=== PATIENT | male | born 1950 | race Caucasian/White ===

== ENCOUNTER 2020-02-14 08:04 | Outpatient (CLI) | payer MEDICARE, OTHER, SELFPAY ==
--- NOTE | 2020-02-14 08:10 | MR_ITS ---
WS: [id number] MRI LUMBAR SPINE NONCONTRAST HISTORY: LOW BACK PAIN COMPARISON: None available. TECHNIQUE: Sagittal and axial multisequence imaging is submitted. Thoracolumbar scoliosis. Lumbar curvature is to the LEFT. Mild straightening of the normal lumbar lordosis. 3 mm retrolisthesis of L2. No vertebral body edema or fracture. Mild disc desiccation throughout the lumbar spine. Most significant narrowing is at L2-3 and L3-4. Conus terminates normally at L1-2 disc level. L1-L2: Mild diffuse disc bulging with facet arthropathy. Very mild narrowing of the subarticular rece sses and foramen. L2-L3: Moderate annular disc bulging with facet and ligamentum flavum arthropathy. Diffuse osteophyti c ridging is also present. There is mild subarticular recess and bilateral foraminal stenosis. L3-L4: Annular disc bulging and osteophytic ridging with facet and ligamentum flavum hypertrophy. Sma ll amount of fluid in the RIGHT facet joint. Severe LEFT foraminal stenosis. Effacement of fat in the LEFT foramen. There is moderate RIGHT foraminal stenosis. Mild central and bilateral subarticular re cess stenosis. L4-L5: Annular disc bulging and osteophytic ridging with facet and ligamentum flavum arthropathy. Mod erate central and bilateral subarticular recess and RIGHT foraminal narrowing. Severe LEFT foraminal stenosis with complete effacement of fat. L5-S1: Annular disc bulging with a RIGHT paracentral focal protrusion and osteophytic ridging. Comple te effacement of fat in the foramen resulting in severe foraminal stenosis. No central stenosis. Retroperitoneum is negative. MR/MR lumbar spine wo con* [id number] IMPRESSION: 1. Multilevel advanced spondylitic changes throughout the lumbar spine. 2. Severe LEFT foraminal stenosis at L3-4 and L4-5. 3. Severe bilateral foraminal stenosis at L5-S1. 4. Mild central and bilateral subarticular recess stenosis at L3-4 with modera te central, RIGHT foraminal and bilateral subarticular recess stenosis at L4-5.
--- NOTE | 2020-02-14 08:10 | XR_ITS ---
WS: [id number] LATERAL LUMBAR SPINE: 3 view. Lateral radiographs are performed in upright neutral, flexion and extension to the patient's toleranc e. HISTORY: LOW BACK PAIN COMPARISON: None available. Minimal retrolisthesis of L2 and L3. With flexion and extension there is no significant change in ret rolisthesis. Mild degenerative disc disease and endplate osteophytes of the lumbar spine. Advanced fa cet joint arthritis is noted L4-5 and L5-S1. Scattered calcification in aorta. XR/XR lumbar spine f/e only [id number] IMPRESSION: 1. Multilevel degenerative changes throughout the lumbar spine with no instabi lity. 2. Advanced facet joint arthritis at L4-5 and L5-S1.
== END 2020-02-14 08:05 | disposition home or self-care (01) ==
PROVIDERS: PCP Family Medicine; Visit Provider Nurse Practitioner
DX: M47.896 Other spondylosis, lumbar region (principal); M48.061 Spinal stenosis, lumbar region without neurogenic claudication; M54.5 Low back pain
CPT/HCPCS: 72120; 72148

== ENCOUNTER 2021-12-22 13:16 | Emergency (ER) | payer MEDICARE, OTHER, SELFPAY ==
[2021-12-22 13:39] VITALS: BP 181/110; PULSE 68; RESP 25; TEMP 36.9; O2SAT 97; BMI 23.5
[2021-12-22 13:46] VITALS: BP 157/95; PULSE 62; RESP 18; TEMP 36.9; O2SAT 97
--- NOTE | 2021-12-22 13:46 | ECG_ITS ---
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: : 1950 Requested By: Sanford Jones Order Number: [id number] Reading MD: SHRUTHI STUBBS Measurements Intervals [place] Rate: 57 P: 78 IL: 183 QRS: 48 QRSD: 93 T: 38 QT: 414 QTc: 405 Interpretive Statements SINUS BRADYCARDIA LOW QRS VOLTAGE IN PRECORDIAL LEADS [QRS DEFLECTION < 1.0 mV IN CHEST LEADS] No previous ECG available for comparison Electronically Signed On 12-22-2021 19:50:14 DIRECTOR OF CHANNEL MARKETING by SHRUTHI STUBBS [id number]
--- NOTE | 2021-12-22 13:46 | ED_ITS ---
HPI - Neuro Symptoms/Deficit General: Chief Complaint: Altered Mental Status Stated Complaint: STROKE LIKE SYMPTOMS Time Seen by Provider: 12/22/21 13:36 Source: patient Mode of arrival: ambulatory Limitations: altered mental status History of Present Illness: 71-year-old male presents emergency room with a friend. Report of altered mental status that is persistent. Does not recall any events of the day. That is his only real altered status. He is 89 difficulty with speech swallowing vision or gait. He has been very confused at times. No difficulty with vision. No headache no shortness of breath no chest pain Onset (ago): hour(s) Time: 08:30 Location: other History of same: No Severity: mild Relieving factors: none Context: sudden onset Associated symptoms: Deny chest pain, cough, diaphoresis, fevers/chills, headache(s), anorexia, malaise, nausea, seizures, short of breath, syncope, tingling, vertigo, vomiting or weakness Treatments Prior to Arrival: none Review of Systems Const: Denies: malaise or diaphoresis ENMT: Denies: throat pain, ear or mastoid pain, nasal discharge or nasal congestion Card: Denies: chest pain or syncope Resp: Denies: dyspnea, productive cough or non-productive cough GI: Denies: nausea or vomiting : Denies: flank pain, dysuria, urinary frequency or urinary urgency Skin/Breast: Denies: rash or pruritus Neuro: Denies: headache(s) or vertigo [facility] ED PFSH: Medical History No significant past medical history Surgical History No significant past surgical history Social History Smoking and tobacco status: never smoked Alcohol intake: unknown NIH stroke score NIHSS: Level Of Consciousness - 1a: 0 Level Of Consciousness Questions - 1b: Both Correct Level Of Consciousness Commands - 1c: Both Correct Best Gaze - 2: Normal Visual Reyes - 3: No Visual Loss Facial Palsy - 4: Normal Motor Arm Right - 5: No Drift Motor Arm Left - 5: No Drift Motor Leg Right - 6: No Drift Motor Leg Left - 6: No Drift Limb Ataxia - 7: Absent Sensory - 8: Normal Best Language - 9: No Aphasia Dysarthia - 10: Normal Extinction And Inattention - 11: 0 Score: Total Score: 0 Physical Exam Const: COMMON NORMALS: no acute distress GENERAL APPEARANCE: cooperative and comfortable ORIENTATION/CONSCIOUSNESS: Yes awake, Yes oriented to person, Yes oriented to place and Yes oriented to time HENMT: COMMON NORMALS: normocephalic, atraumatic and hearing grossly normal bilaterally HEAD & SCALP: normocephalic and atraumatic Neck/C-Spine: COMMON NORMALS: no JVD Resp: COMMON NORMALS: normal respiratory effort, No retractions, No use of accessory muscles and clear to auscultation bilaterally AUSCULTATION: clear to auscultation bilaterally Cardio: COMMON NORMALS: no JVD, regular rate, regular rhythm and No murmurs present (Cardio) RATE: regular rate RHYTHM: regular rhythm GI: COMMON NORMALS: Soft to palpation and No hepatosplenomegaly present AUSCULTATION: Yes normoactive bowel sounds PALPATION: Yes Soft to palpation, No Tenderness to palpation present (GI), No Guarding due to palpation present (GI) and Yes No hepatosplenomegaly present Extremity: COMMON NORMALS: normal to inspection, capillary refill normal, no clubbing, cyanosis or edema, no calf tenderness and no pedal edema Neuro: SENSORIUM/ORIENTATION: Yes oriented to person, Yes oriented to place and Yes oriented to time Skin: COMMON NORMALS: no rashes or lesions noted GENERAL SKIN EXAM: no rashes or lesions noted Course Vital Signs: Vital signs: Vital Signs Temperature 98.5 F 12/22/21 13:46 Pulse Rate 62 12/22/21 13:46 Respiratory Rate 18 12/22/21 13:46 Blood Pressure 157/95 12/22/21 13:46 Pulse Oximetry 97 12/22/21 13:46 MDM - Neuro Symptoms/Deficit Medical Decision Making Patient is stroke score 0 is no focal neurologic deficits noted. He has some some mild hypertension which was treated. Wearing Goeden discharge him home in a really find anything that we can benefit with hospitalization. His blood pressure initially was high at improved now and is completely asymptomatic he still has no memory of his small portion of the day. We will go ahead and have him take baby aspirin daily set him up for an outpatient MRI and follow-up with his PCP and neurology. If he has any recurrence or worsening or change symptoms return to the emergency room. Medical Records I reviewed the patient's medical records. Lab Data I reviewed the patient's lab results. : 12/22/21 13:25 12/22/21 13:[address] 12/22/21 13:46 IMPRESSION: 1. No evidence of intracranial hemorrhage or mass effect. 2. Mild small vessel changes with mild parenchymal volume loss. 3. Trace fluid in the maxillary sinuses. 4. No acute intracranial findings. Notification Sanford Marcelino DO at 12/22/2021 3:10 PM. Laboratory Results WBC 5.4 10^3/uL (4.0-10.0) 12/22/21 13:25 RBC 4.15 10^6/uL (4.1-5.3) 12/22/21 13:25 Hgb 12.3 g/dL (11.7-16.6) 12/22/21 13:25 Hct 38.2 % (42.0-52.0) L 12/22/21 13:25 MCV 92.0 fl (80-94) 12/22/21 13:25 MCH 29.6 pg (28.0-34.0) 12/22/21 13:25 MCHC 32.2 g/dL (30.0-36.0) 12/22/21 13:25 RDW 14.6 % (12.1-15.1) 12/22/21 13:25 Plt Count 259 10^3/cmm (130-400) 12/22/21 13:25 MPV 9.8 fL (7.4-10.4) 12/22/21 13:25 Neut % (Auto) 62.3 % 12/22/21 13:25 Lymph % (Auto) 26.3 % 12/22/21 13:25 Mitchell % (Auto) 6.9 % 12/22/21 13:25 Eos % (Auto) 3.7 % 12/22/21 13:25 Baso % (Auto) 0.6 % 12/22/21 13:25 Neut # (Auto) 3.34 10^3/uL (1.8-7.7) 12/22/21 13:25 Lymph # (Auto) 1.4 10^3/uL (0.8-4.8) 12/22/21 13:25 Mitchell # (Auto) 0.4 10^3/uL (0.2-0.9) 12/22/21 13:25 Eos # (Auto) 0.2 10^3/uL (0.0-0.8) 12/22/21 13:25 Baso # (Auto) 0.0 10^3/uL (0.0-0.1) 12/22/21 13:25 Nucleated RBC % (auto) 0 % 12/22/21 13:25 Nucleated RBCs # 0.0 /100WBC 12/22/21 13:25 PT 12.70 SECONDS (12.1-14.9) 12/22/21 13:25 INR 0.92 (0.8-1.2) 12/22/21 13:25 APTT 27.7 SECONDS (23.9-36.7) 12/22/21 13:25 Sodium 141 mmol/L (136-145) 12/22/21 13:25 Potassium 3.9 mmol/L (3.5-5.1) 12/22/21 13:25 Chloride 102 mmol/L (98-107) 12/22/21 13:25 Carbon Dioxide 29 mmol/L (22-29) 12/22/21 13:25 Anion Gap 13.9 (5-19) 12/22/21 13:25 BUN 10 mg/dL (8-23) 12/22/21 13:25 Creatinine 0.8 mg/dL (0.7-1.2) 12/22/21 13:25 GFR Calculation Not Reportable 12/22/21 13:25 Glucose 94 mg/dL (65-115) 12/22/21 13:25 Calculated Osmolality 291 mOsm/kg (285-295) 12/22/21 13:25 Calcium 8.7 mg/dL (8.5-10.5) 12/22/21 13:25 Total Bilirubin 0.4 mg/dL (0.15-1.2) 12/22/21 13:25 AST 24 U/L (0-40) 12/22/21 13:25 ALT 11 U/L (0-41) 12/22/21 13:25 Alkaline Phosphatase 73 IU/L (40-130) 12/22/21 13:25 Total Protein 6.7 g/dL (6.6-8.7) 12/22/21 13:25 Albumin 4.5 g/dL (3.5-5.2) 12/22/21 13:25 Globulin 2.2 g/dL (1.3-4.6) 12/22/21 13:25 Salicylates < 0.3 mg/dL (3-10) L 12/22/21 13:25 Acetaminophen < 5.0 ug/mL (10-30) L 12/22/21 13:25 Ethyl Alcohol < 10 mg/dL (0-10) 12/22/21 13:25 Discharge Plan Discharge Patient Disposition: Home Clinical Impression: Transient memory loss Condition: Stable Prescriptions: New aspirin 81 mg tablet,delayed release (DR/EC) 81 mg PO DAILY Qty: 30 0RF No Action multivitamin Tablet 1 tab PO DAILY 0RF trazodone 50 mg tablet 50 mg PO BEDTIME 0RF oxybutynin chloride 10 mg tablet extended release 24hr 10 mg PO DAILY 0RF hydrocodone-acetaminophen 5-325 mg tablet 1 tab PO QID PRN (Reason: Pain) 0RF calcium carbonate-vitamin D3 [Calcium + D] 600 mg(1,500mg) -200 unit Tablet 1 tab PO DAILY 0RF cyanocobalamin (vitamin B-12) [Vitamin B-12] 500 mcg Tablet 500 mcg PO DAILY 0RF ascorbic acid (vitamin C) [Vitamin C] 500 mg Tablet 500 mg PO BID 0RF ferrous sulfate [iron] 325 mg (65 mg iron) Tablet 325 mg PO DAILY 0RF buspirone 10 mg tablet 10 mg PO BID 0RF diphenhydramine HCl [Benadryl Allergy] 25 mg Tablet 50 mg PO QAM PRN (Reason: Allergy Symptoms) 0RF zinc 50 mg Tablet 50 mg PO DAILY 0RF albuterol sulfate [ProAir HFA] 90 mcg/actuation HFA aerosol inhaler 2 puff INHALATION Q4H PRN (Reason: Shortness Of Breath) 0RF paroxetine HCl 40 mg tablet 40 mg PO DAILY 0RF cholecalciferol (vitamin D3) [Vitamin D3] 50 mcg (2,000 unit) Capsule 50 mcg PO DAILY 0RF biotin 1 cap PO DAILY 0RF Discharge Orders: Discharge ED (Routine); Ordered 12/22/21 Ordered By: Sanford Marcelino Referrals: Milind Lopez [Primary Care Provider] - Discharge Diet: Usual diet Discharge Activity: Limit activity as instructed Patient Instructions: Opioid Safety Activity Restrictions/Additional Instructions: Case management make arrangements for you to have an MRI and follow-up with neurology. Return if you have further problems. 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
--- NOTE | 2021-12-22 13:46 | CT_ITS ---
WS: [id number] CT HEAD TECHNIQUE: Noncontrast CT of the head obtained from the skullbase to the vertex. CLINICAL INFORMATION: Symptoms of Acute Stroke COMPARISON: MRI 2018 DLP: 956.[address] scans at [facility] use at least one of these dose optimization techniques: automated e xposure control; mA and/or kV adjustment per patient size (includes targeted exams where dose is matc hed to clinical indication); or iterative reconstruction. FINDINGS: No evidence of intracranial hemorrhage or mass effect. Ventricular system and basal cisterns are mtz nt. Mild small vessel changes with mild parenchymal volume loss. No extra-axial fluid collections. No evidence of mass or mass effect. Normal tian-white differentiation. Mild mucosal thickening in the paranasal sinuses. Mastoid air cells are well aerated. CT/CT head wo con* [id number] IMPRESSION: 1. No evidence of intracranial hemorrhage or mass effect. 2. Mild small vessel changes with mild parenchymal volume loss. 3. Trace fluid in the maxillary sinuses. 4. No acute intracranial findings. Notification Sanford Marcelino DO at 12/22/2021 3:10 PM.
[2021-12-22 14:09] LABS: Basophils % 0.6 %; Eosinophils # 0.2 10^3/uL (0.0-0.8); Eosinophils % 3.7 %; Hematocrit 38.2 % (42.0-52.0); Hemoglobin 12.3 g/dL (11.7-16.6); Lymphocytes # 1.4 10^3/uL (0.8-4.8); Lymphocytes % 26.3 %; Mean Corpuscular HGB Conc 32.2 g/dL (30.0-36.0); Mean Corpuscular Hemoglobin 29.6 pg (28.0-34.0); Mean Platelet Volume 9.8 fL (7.4-10.4); Monocytes # 0.4 10^3/uL (0.2-0.9); Monocytes % 6.9 %; Neutrophils # 3.34 10^3/uL (1.8-7.7); Neutrophils % 62.3 %; Nucleated Red Blood Cells % 0 %; Platelet Count 259 10^3/cmm (130-400); Red Blood Count 4.15 10^6/uL (4.1-5.3); Red Cell Distribution Width 14.6 % (12.1-15.1); White Blood Count 5.4 10^3/uL (4.0-10.0)
[2021-12-22 14:18] LABS: Alanine Aminotransferase 11 U/L (0-41); Albumin Level 4.5 g/dL (3.5-5.2); Alkaline Phosphatase 73 IU/L (40-130); Anion Gap 13.9 (5-19); Aspartate Amino Transferase 24 U/L (0-40); Blood Urea Nitrogen 10 mg/dL (8-23); Calcium 8.7 mg/dL (8.5-10.5); Carbon Dioxide 29 mmol/L (22-29); Chloride 102 mmol/L (98-107); Globulin 2.2 g/dL (1.3-4.6); Glucose 94 mg/dL (65-115); Osmolality Calculated 291 mOsm/kg (285-295); Potassium 3.9 mmol/L (3.5-5.1); Sodium 141 mmol/L (136-145); Total Bilirubin 0.4 mg/dL (0.15-1.2); Total Protein 6.7 g/dL (6.6-8.7)
[2021-12-22 14:22] LABS: INR 0.92 (0.8-1.2)
[2021-12-22 14:23] LABS: Partial Thromboplastin Time 27.7 SECONDS (23.9-36.7)
[2021-12-22 14:52] LABS: Acetaminophen < 5.0 ug/mL (10-30); Alcohol Level < 10 mg/dL (0-10); Salicylate < 0.3 mg/dL (3-10)
--- NOTE | 2021-12-23 10:38 | DCPLANNER ---
Addendum entered by Alexandra Foster 02/24/22 15:09: Patient has a follow up appointment scheduled for Friday, April 22, 2022 at 10:[address] Faria. Clinic will notify patient with appointment information. Addendum entered by Alexandra Foster 02/17/22 16:01: client support manager sent a message to neurology front staff to check on referral made to neurology. Addendum entered by Alexandra Foster 01/17/22 10:54: Patient had a follow up appointment scheduled for Friday, January 28, 2022 at 8:00 for an outpatient MRI. Centralized scheduling will call patient with appointment information. Original Note: client support manager had message to schedule an outpatient MRI for patient. client support manager faxed signed order to centralized scheduling, who will call patient with appointment information. client support manager also had message to schedule a follow up appointment for patient with neurology. client support manager emailed patients information to the neurology clinic. Patients information will be printed and reviewed. Clinic will call patient with appointment information.
== END 2021-12-22 18:38 | disposition home or self-care (01) ==
PROVIDERS: Emergency Provider Family Medicine; PCP Family Medicine
DX: G45.4 Transient global amnesia (principal); I10 Essential (primary) hypertension
CPT/HCPCS: 70450; 80053; 80307; 85025; 85610; 85730; 93005; 99283

== ENCOUNTER 2022-01-28 07:39 | Outpatient (CLI) | payer MEDICARE, OTHER, SELFPAY ==
--- NOTE | 2022-01-28 07:48 | MR_ITS ---
WS: [id number] MRI HEAD WITH CONTRAST TECHNIQUE: Sagittal T1, T2 axial, T2 axial FLAIR, axial susceptibility weighted imaging, axial diffus ion weighted images, and coronal T2 images were obtained. Pre and post-T1 axial and post T1 coronal i mages. ADC and FSPGR images. CLINICAL INFORMATION: MEMORY LOSS COMPARISON: CT December 22, 2021 and MRI May 11, 2018 FINDINGS: No evidence of restricted diffusion to suggest acute ischemia. Ventricular system and basal cisterns are patent. Mild small vessel changes. Mild parenchymal volume loss. Normal posterior fossa. Normal vascular flow voids at the skull base. No extra-axial fluid collection s. No evidence of mass or mass effect. Mastoid air cells are well aerated. Mild mucosal thickening in the paranasal sinuses. Normal optic chiasm and pituitary infundibulum. Mild symmetric atrophy temporal lobes and hippocampal formations. Normal cavernous sinuses and Meckel's cave. Incidental venous angioma RIGHT parietal occipital junction with T2 hyperintensity unchanged. Normal dural venous sinuses. MR/MR head wo/w con [id number] IMPRESSION: 1. No evidence of restricted diffusion to suggest acute ischemia. 2. Mild small vessel changes with mild parenchymal volume loss. 3. Incidental venous angioma RIGHT parietal occipital junction with a small am ount of T2 hyperintensity unchanged. 4. Mild symmetric atrophy temporal lobes and hippocampal formations. 5. Mild mucosal thickening in the paranasal sinuses. 6. No other significant findings.
[2022-01-28] MEDS: gadobenate dimeglumine 20 mL vial IV (08:31)
== END 2022-01-28 07:40 | disposition home or self-care (01) ==
LOC: RAD 07:42
PROVIDERS: PCP Family Medicine; Visit Provider Family Medicine
DX: R41.3 Other amnesia (principal); G31.9 Degenerative disease of nervous system, unspecified
CPT/HCPCS: 70553

== ENCOUNTER → 2022-04-22 09:52 | Outpatient (BNVA) | payer MEDICARE, OTHER, SELFPAY | PROVIDERS: PCP Family Medicine; Referring Provider Family Medicine; Visit Provider Specialist | DX: G45.4 Transient global amnesia (principal); R51.9 Headache, unspecified | CPT/HCPCS: 85025; 85651; 86140; 99205 ==

== ENCOUNTER → 2022-04-28 07:52 | Outpatient (BNVA) | payer MEDICARE, OTHER, SELFPAY | PROVIDERS: PCP Family Medicine; Visit Provider Surgery | DX: R51.9 Headache, unspecified (principal) | CPT/HCPCS: 99203 ==

== ENCOUNTER 2022-05-04 12:24 | Day surgery (SDC) | payer MEDICARE, OTHER, SELFPAY ==
[2022-05-01 12:38] VITALS: BMI 23.9
[2022-05-04] VITALS (9 sets, daily range): BP systolic 121–153; BP diastolic 65–89; PULSE 83–97; RESP 18–20; TEMP 36.4–37.1; O2SAT 94–99
--- NOTE | 2022-05-04 12:57 | ANES.PREANE2 ---
Pre-Anesthetic Assessment Height/Weight: Height 1.7 m Weight 69.4 kg Temp Pulse Resp BP Pulse Ox 97.8 F 91 18 147/77 95 05/04/22 12:36 05/04/22 12:36 05/04/22 12:36 05/04/22 12:36 05/04/22 12:36 Preop Diagnosis: headache Operation Date: 05/04/22 13:50 Proposed Procedures p bilateral [place] b[place] 43162 2x,R51.9(Bilateral) - Ez Garza DO Familial anesthetic complications: None Was Beta Efe taken within 24 hours: N/A Was Clonidine taken within 24 hours: N/A Last intake: Intake Last Liquid Date 05/04/22 Last Liquid Time 06:00 Last Solid Date 05/03/22 Last Solid Time 21:30 Social No alcohol and No tobacco Exam alert, oriented x 3, clear to auscultation bilaterally and regular rate & rhythm Airway Submandibular: within normal limits Cervical ROM: within normal limits Mallampati: Class II Dentition: chipped Comments: Comments: Missing several Pulmonary Asthma CV/HEM Anemia [facility] [place] chronic pain/opioid Neuropsych Headache Anesthetic Plan ASA status: 3 Anesthesia: General Medications/Allergies Home Medications Medication Instructions Recorded Confirmed Last Taken Type albuterol sulfate 90 mcg/actuation 2 puff INHALATION Q4H PRN 12/22/21 05/04/22 04/29/22 History aerosol inhaler (ProAir HFA) ascorbic acid (vitamin C) 500 mg 500 mg PO BID 12/22/21 05/04/22 05/03/22 History tablet (Vitamin C) aspirin 81 mg tablet,delayed 81 mg PO DAILY #30 tab 12/22/21 05/04/22 05/03/22 Rx release biotin 1 cap PO DAILY 12/22/21 05/01/22 Unknown History buspirone 10 mg tablet 10 mg PO BID 12/22/21 05/04/22 05/03/22 History calcium carbonate 600 mg-vitamin 1 tab PO DAILY 12/22/21 05/04/22 05/03/22 History D3 5 mcg (200 unit) tablet cholecalciferol (vitamin D3) 50 50 mcg PO DAILY 12/22/21 05/04/22 05/03/22 History mcg (2,000 unit) capsule (Vitamin D3) cyanocobalamin (vitamin B-12) 500 500 mcg PO DAILY 12/22/21 05/04/22 05/03/22 History mcg tablet (Vitamin B-12) diphenhydramine HCl 25 mg tablet 50 mg PO QAM PRN 12/22/21 05/04/22 05/03/22 History (Benadryl Allergy) ferrous sulfate 325 mg (65 mg 325 mg PO DAILY 12/22/21 05/04/22 05/03/22 History iron) tablet (iron) hydrocodone 5 mg-acetaminophen 325 1 tab PO QID PRN 12/22/21 05/04/22 05/04/22 06:00 History mg tablet multivitamin 1 tab PO DAILY 12/22/21 05/04/22 05/03/22 History oxybutynin chloride 10 mg 10 mg PO DAILY 12/22/21 05/04/22 05/03/22 History tablet,extended release 24 hr paroxetine HCl 40 mg tablet 40 mg PO DAILY 12/22/21 05/04/22 05/03/22 History trazodone 50 mg tablet 50 mg PO BEDTIME 12/22/21 05/04/22 05/03/22 History zinc 50 mg tablet 50 mg PO DAILY 12/22/21 05/04/22 05/03/22 History amitriptyline 25 mg tablet 25 mg PO DAILY #30 tab 04/22/22 05/04/22 05/03/22 Rx Allergies Allergy/AdvReac Type Severity Reaction Status Date / Time Penicillins Allergy ALGY-Anaphy Verified 05/04/22 12:37 laxis [facility] Anesthesia Medical History (Updated 04/28/22 @ 08:39 by Ez Garza DO) Hx of cataract No significant past medical history Transient global amnesia Surgical History (Updated 04/28/22 @ 08:36 by Ez Garza DO) History of knee replacement procedure of left knee History of knee replacement procedure of right knee Hx of colonoscopy 10 plus years ago Hx of gastric bypass Hx of hernia repair 3 total Hx of tonsillectomy No significant past surgical history Social History Smoking and tobacco status: never smoked Alcohol intake: unknown Data Anesthesia Cardiac Studies: No Data to Display
[2022-05-04] MEDS: sodium chloride 0.9% 1,000 ML 30 ML IV (13:01)
[2022-05-04] MEDS: HYDROmorphone 1 mg/mL INJ 1 mL 0.5 MG IVP (14:53)
[2022-05-04] MEDS: vancomycin 1,000 MG in sodium chloride 0.9% 250 ML 250 MG IV (15:21)
--- NOTE | 2022-05-04 15:51 | W.PM.OPSUD ---
Surgery/Procedure H&P Update DATE OF PROCEDURE: May 04, 2022 DATE H&P PERFORMED: 04/28/22 PREOP DIAGNOSIS: headache PLANNED PROCEDURE: Operation Date: 05/04/22 13:50 Proposed Procedures p bilateral [place] bx 93419 2x,R51.9(Bilateral) - Ez Garza DO
--- NOTE | 2022-05-04 17:46 | PC.NURSE ---
CALLED AT 1500 TO NOTIFY PATHOLOGY OF THE BILATERAL TEMPORAL ARTERY BIOPSY SCHEDULED. SPOKE WITH DR. DIGGS, INFORMED ME TO PUT SPECIMENS IN FORMALIN.
--- NOTE | 2022-05-04 19:00 | ANE.PACU2 ---
Inpatient post-anesthesia follow up: Airway intact: Yes Vital signs: Temperature 98.7 F Pulse Rate 90 Respiratory Rate 18 Blood Pressure 127/77 Pulse Oximetry 94 Oxygen Delivery Me thod Room Air Oxygen Flow Rate 6 Fraction of Inspir ed Oxygen Hydration adequate: Yes Nausea and vomiting: No Pain level: 2 Mental status: Baseline
--- NOTE | 2022-05-04 22:40 | PM.OP ---
Operative Report Date of procedure: May 04, 2022 Pre-op diagnosis: Preop Diagnosis headache Post-op diagnosis: same Procedure done: Bilateral temporal artery biopsies Specimens removed/disposition: bilateral temporal arteries Surgeon: Dr. Ez Garza DO Estimated blood loss: 25 Complications: None apparent Brief History: This is a very pleasant 72-year-old male who was referred to my office by Dr. Faria, neurology, due to persistent temporal headaches. Temporal artery biopsies were indicated. The risks and benefits were explained and documented. Procedure: Patient was wheeled into the room and placed on the OR table in supine position. The bilateral temples were inspected prepped and draped in usual sterile fashion. A timeout was performed and all present were in agreement. I began on the patient's left side. The left temporal artery was palpated and dopplered, just anterior and superior to the ear. The site was marked and 2% lidocaine with epinephrine was used to anesthetize the skin and hydrodissect the subcutaneous tissue away from the artery. A 3 cm vertical incision was made at the site marked. Dissection was carried down to the fascia with cautery and blunt dissection. The fascia was opened with iris scissors, vertically, on each side of the temporal artery. The temporal artery was isolated and ligated proximally distally with 3-0 silk. A sample of the artery measuring proximately 2.5 cm was excised and sent to pathology. Hemostasis was achieved with electrocautery. Dermis was approximated with 3-0 Vicryl and skin was closed with Dermabond. Attention was then brought to the patient's right side. The right temporal artery was palpated and dopplered, just anterior and superior to the ear. The site was marked and 2% lidocaine with epinephrine was used to anesthetize the skin and hydrodissect the subcutaneous tissue away from the artery. A 3 cm vertical incision was made at the site marked. Dissection was carried down to the fascia with cautery and blunt dissection. The fascia was opened with iris scissors, vertically, on each side of the temporal artery. The temporal artery was isolated and ligated proximally distally with 3-0 silk. A sample of the artery measuring proximately 2.5 cm was excised and sent to pathology. Hemostasis was achieved with electrocautery. Dermis was approximated with 3-0 Vicryl and skin was closed with Dermabond. Patient tolerated the procedure well.
== END 2022-05-04 18:49 | disposition home or self-care (01) ==
PROVIDERS: PCP Family Medicine; Visit Provider Surgery
PROC: (CPT 37609; principal; 2022-05-04 13:40)
DX: R51.9 Headache, unspecified (principal); J45.909 Unspecified asthma, uncomplicated; G89.29 Other chronic pain; Z79.891 Long term (current) use of opiate analgesic; Z79.82 Long term (current) use of aspirin
CPT/HCPCS: 37609; 88305; J1100; J1170; J2250; J2405; J2704; J3010; J3370; J7030; J7050

== ENCOUNTER → 2022-05-19 09:55 | Outpatient (BNVA) | payer MEDICARE, OTHER, SELFPAY | PROVIDERS: PCP Family Medicine; Visit Provider Surgery | DX: Z48.89 Encounter for other specified surgical aftercare (principal); M31.6 Other giant cell arteritis | CPT/HCPCS: 99213 ==

== ENCOUNTER → 2022-05-27 08:55 | Outpatient (BNVA) | payer MEDICARE, OTHER, SELFPAY | PROVIDERS: PCP Family Medicine; Visit Provider Specialist | DX: M31.6 Other giant cell arteritis (principal); R41.3 Other amnesia | CPT/HCPCS: 99214; 99215 ==

== ENCOUNTER 2022-07-02 12:38 | Outpatient (CLI) | payer MEDICARE, OTHER, SELFPAY ==
--- NOTE | 2022-07-02 13:06 | XR_ITS ---
WS: [id number] XR shoulder RT min 2V* [id number] REASON FOR EXAM: PAIN IN R SHOULDER FINDINGS: No fracture or focal bone lesion. Significant narrowing of the acromioclavicular joint space with marginal sclerosis and osteophytosis. Narrowing of the glenohumeral joint space with subchondral sclerosis and osteophytosis of the glenoid and humeral head. Moderate subchondral sclerosis and cystic change of the humeral greater biceps tuberosity. 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 Moderate rotator cuff tendon arthropathy.
--- NOTE | 2022-07-02 13:06 | XR_ITS ---
WS: [id number] XR shoulder LT min 2V* [id number] REASON FOR EXAM: PAIN IN LEFT SHOULDER FINDINGS: No fracture or focal bone lesion. Significant narrowing of the AC joint with marginal sclerosis and osteophytosis. Narrowing of the glenohumeral joint with moderate subchondral sclerosis and osteophytosis of the zaira oid and humeral head. Moderate subchondral sclerosis and cystic change in the humeral greater biceps tuberosity. XR/XR shoulder LT min 2V* [id number] IMPRESSION: Moderate osteoarthritis in the AC joint and the glenohumeral joint. Moderate rotator cuff tendon arthropathy.
== END 2022-07-02 12:39 | disposition home or self-care (01) ==
LOC: RAD 12:42
PROVIDERS: PCP Family Medicine; Visit Provider Anesthesiology Pain Medicine
DX: M19.012 Primary osteoarthritis, left shoulder (principal); M19.011 Primary osteoarthritis, right shoulder
CPT/HCPCS: 73030

== ENCOUNTER → 2022-07-20 07:53 | Outpatient (BNVA) | payer MEDICARE, OTHER, SELFPAY | PROVIDERS: PCP Family Medicine; Visit Provider Specialist | DX: M31.6 Other giant cell arteritis (principal); R41.3 Other amnesia | CPT/HCPCS: 99214 ==

== ENCOUNTER → 2022-08-31 08:57 | Outpatient (BNVA) | payer MEDICARE, OTHER, SELFPAY | PROVIDERS: PCP Family Medicine; Visit Provider Specialist | DX: M19.012 Primary osteoarthritis, left shoulder; M19.011 Primary osteoarthritis, right shoulder; M75.102 Unspecified rotator cuff tear or rupture of left shoulder, not specified as traumatic | CPT/HCPCS: 20610; 73030; 99204; 99205; J1100; J2795; J3301 ==

== ENCOUNTER → 2022-10-13 08:01 | Outpatient (BNVA) | payer MEDICARE, OTHER, SELFPAY | PROVIDERS: PCP Family Medicine; Visit Provider Specialist | DX: M31.6 Other giant cell arteritis (principal); R51.9 Headache, unspecified; R41.3 Other amnesia; R42 Dizziness and giddiness | CPT/HCPCS: 36415; 85651; 86140; 99215 ==

== ENCOUNTER → 2022-12-03 09:52 | Outpatient (BNVA) | payer MEDICARE, OTHER, SELFPAY | PROVIDERS: PCP Family Medicine; Visit Provider Specialist | DX: M19.012 Primary osteoarthritis, left shoulder (principal); M75.102 Unspecified rotator cuff tear or rupture of left shoulder, not specified as traumatic | CPT/HCPCS: 20610; J1100; J2795; J3301 ==

== ENCOUNTER 2022-12-18 06:43 | Outpatient (CLI) | payer MEDICARE, OTHER, SELFPAY ==
--- NOTE | 2022-12-18 07:15 | MR_ITS ---
WS: [id number] ANGIOGRAPHY [facility] HISTORY: R51.9 - Headache, unspecified COMPARISON: MRI head 01/28/2022 TECHNIQUE: 3-D MR angiography is performed of the [facility]. All images are reviewed including source images. Dominant RIGHT vertebral artery is very tortuous and crosses LEFT of the midline. Small caliber but p atent LEFT vertebral artery. Basilar artery is normal caliber. Posterior cerebral arteries are both i dentified. Small caliber LEFT P1 segment but it is patent. Both posterior communicating arteries are hypoplastic. Intracranial carotid arteries are both patent. No high-grade stenosis or aneurysm. Middle and anterio r cerebral arteries are well visualized. No aneurysms. No paucity of vessels in the distal MCA territ ory. No evidence for vasculitis. No occlusions or aneurysm. MR/MR angio head con [id number] IMPRESSION: 1. No [facility] aneurysm or occlusions. 2. Small caliber LEFT T1 segment but it is patent. 3. Dominant RIGHT vertebral artery.
== END 2022-12-18 06:44 | disposition home or self-care (01) ==
LOC: RAD 06:43
PROVIDERS: PCP Family Medicine; Visit Provider Specialist
DX: R51.9 Headache, unspecified (principal); M31.6 Other giant cell arteritis
CPT/HCPCS: 70544

== ENCOUNTER → 2023-01-01 15:11 | Outpatient (BNVA) | payer MEDICARE, OTHER, SELFPAY | PROVIDERS: PCP Family Medicine; Visit Provider Specialist | DX: H81.10 Benign paroxysmal vertigo, unspecified ear (principal); G43.711 Chronic migraine without aura, intractable, with status migrainosus | CPT/HCPCS: 99214 ==

== ENCOUNTER 2023-01-27 07:42 | Outpatient (RCR) | payer MEDICARE, OTHER, SELFPAY | END 2023-02-19 23:59 | disposition home or self-care (01) | LOC: SPT 07:42 | PROVIDERS: PCP Family Medicine; Visit Provider Specialist | DX: R42 Dizziness and giddiness (principal) | CPT/HCPCS: 95992; 97161 ==

== ENCOUNTER → 2023-03-04 10:43 | Outpatient (BNVA) | payer MEDICARE, OTHER, SELFPAY | PROVIDERS: PCP Family Medicine; Visit Provider Specialist | DX: M75.102 Unspecified rotator cuff tear or rupture of left shoulder, not specified as traumatic (principal); M12.812 Other specific arthropathies, not elsewhere classified, left shoulder; Z71.89 Other specified counseling | CPT/HCPCS: 20610; J1100; J2795; J3301 ==

== ENCOUNTER → 2023-06-10 14:10 | Outpatient (BNVA) | payer MEDICARE, OTHER, SELFPAY | PROVIDERS: PCP Family Medicine; Visit Provider Specialist | DX: M75.102 Unspecified rotator cuff tear or rupture of left shoulder, not specified as traumatic (principal); M12.812 Other specific arthropathies, not elsewhere classified, left shoulder | CPT/HCPCS: 20610; J1100; J2795; J3301 ==

== ENCOUNTER → 2023-07-07 14:14 | Outpatient (BNVA) | payer MEDICARE, OTHER, SELFPAY | PROVIDERS: PCP Family Medicine; Visit Provider Specialist | DX: G43.019 Migraine without aura, intractable, without status migrainosus | CPT/HCPCS: 99213 ==

== ENCOUNTER → 2023-09-02 10:18 | Outpatient (BNVA) | payer MEDICARE, OTHER, SELFPAY | PROVIDERS: PCP Family Medicine; Visit Provider Specialist | DX: M75.102 Unspecified rotator cuff tear or rupture of left shoulder, not specified as traumatic; M19.011 Primary osteoarthritis, right shoulder; M19.012 Primary osteoarthritis, left shoulder; Z71.89 Other specified counseling | CPT/HCPCS: 20610; J1100; J2795; J3301 ==

== ENCOUNTER 2023-10-16 06:18 | Inpatient (IN) | payer MEDICARE, OTHER, SELFPAY ==
[2023-10-16 06:20] VITALS: BP 129/83; PULSE 97; RESP 18; TEMP 36.4; O2SAT 99; BMI 21.9
--- NOTE | 2023-10-16 06:36 | ED_ITS ---
HPI - Abdominal Pain 2 General: Chief Complaint: Abdominal Pain Stated Complaint: ABD PAIN Time Seen by Provider: 10/16/23 06:28 History of Present Illness: Patient presents to the ER with complaints of abdominal pain nausea and vomiting. Yesterday patient had not had a bowel movement for day and a half and took some laxative last night. Patient's last intake was approximately 1630 yesterday. Patient woke up this morning with abdominal pain nausea vomiting. Patient says he really does not get any vomitus up is mainly all dry heaving. Patient does have a history of gastric bypass. Review of Systems 2 General: Reports: 10 or more systems reviewed and unremarkable except in HPI and below PFSH ED 2 PFSH: Medical History Hx of cataract No significant past medical history Temporal arteritis Transient global amnesia Surgical History History of biopsy of temporal artery bilateral done 05/04/22-Dr. Garza History of knee replacement procedure of left knee History of knee replacement procedure of right knee Hx of colonoscopy 10 plus years ago Hx of gastric bypass Hx of hernia repair 3 total Hx of tonsillectomy No significant past surgical history Social History Smoking and tobacco/nicotine status: never used tobacco/nicotine Alcohol intake: unknown Physical Exam 2 Const: COMMON NORMALS: average body habitus, patient oriented x3, no limitations, healthy appearing, alert and well nourished HENMT: COMMON NORMALS: normocephalic, hearing grossly normal bilaterally, external ears normal, Normal external nose present, moist oral mucous membranes and oropharynx normal HEAD & SCALP: normocephalic NOSE: Normal external nose present EXTERNAL EAR: Yes external ears normal Neck/C-Spine: COMMON NORMALS: no JVD Chest: COMMONS NORMALS: normal inspection of the chest and normal palpation of entire chest wall Resp: COMMON NORMALS: normal respiratory effort, No retractions, No use of accessory muscles and clear to auscultation bilaterally AUSCULTATION: clear to auscultation bilaterally Cardio: COMMON NORMALS: no JVD, regular rate, regular rhythm, S1 normal heart sound present, S2 normal heart sound present, No gallops present (Cardio), No clicks present (Cardio), No murmurs present (Cardio) and No rub (Cardio) R ATE: regular rate RHYTHM: regular rhythm HEART SOUNDS: S1 normal heart sound present and S2 normal heart sound present GI: COMMON NORMALS: Soft to palpation, No hepatosplenomegaly present and no masses; negative for Normal to inspection, nondistended, normoactive bowel sounds present (Mildly distended normal active bowel sounds) and negative for non- tender (Diffusely tender throughout) PALPATION: Yes Soft to palpation and Yes No hepatosplenomegaly present Neuro: COMMON NORMALS: patient oriented x3 SENSORIUM/ORIENTATION: Yes alert Course 2 Vital Signs: Vital signs: Vital Signs Temperature 97.5 F L 10/16/23 06:20 Pulse Rate 97 10/16/23 06:20 Respiratory Rate 17 10/16/23 09:42 Blood Pressure 129/83 10/16/23 06:20 Pulse Oximetry 95 10/16/23 09:42 MDM - Abdominal Pain Medical Decision Making Discussed case with Dr. Garza surgery who said admit to medicine, n.p.o., NG tube, normal saline at 150 mL/h. Discussed case with Dr. Win who agreed to place patient MedSurg for further evaluation and treatment. He did suggest we get a lactic acid which was ordered. Differential Diagnosis Likely abdominal pain, constipation and small bowel obstruction; Unlikely acute appendicitis, calculus of kidney, diverticulitis, endometriosis, gastroenteritis or pancreatitis Medical Records I reviewed the patient's medical records. Lab Data I reviewed the patient's lab results. 10/16/23 06:40 10/16/23 06:40 Labs/Radiology: Radiology Impressions Abdomen/Pelvis CT 10/16/23 08:01 IMPRESSION: 1. Findings suspicious for small bowel obstruction . Pneumatosis not excluded. Ileus or other process not completely ruled. 2. Findings suggesting cholelithiasis. 3. Nonobstructing stone/calculus right kidney. 4. Small hiatal hernia. Fluid within distal esophagus suggesting gastroesophageal reflux. 5. Please see body of report for findings. COMMENTS: Consistent with the [employer]'s Incidental Findings Committee white paper (J Am Kitty Radiol 2018): Any incidental renal lesion less than 1 cm or classified as too small to characterize, or any incidental cystic renal lesion characterized as simple-appearing, is likely benign. No follow-up imaging is recommended for these lesions per consensus recommendations based on imaging criteria. Laboratory Results WBC 16.21 10^3/uL (3.29-11.43) H 10/16/23 06:40 RBC 4.69 10^6/uL (3.85-5.65) 10/16/23 06:40 Hgb 14.00 g/dL (11.27-16.99) 10/16/23 06:40 Hct 42.3 % (37-53) 10/16/23 06:40 MCV 90.2 fl (82-101) 10/16/23 06:40 MCH 29.9 pg (27-33) 10/16/23 06:40 MCHC 33.1 g/dL (30-55) 10/16/23 06:40 RDW 13.2 % (12.1-15.1) 10/16/23 06:40 Plt Count 366 10^3/cmm (157-399) 10/16/23 06:40 MPV 9.2 fL (7.4-10.4) 10/16/23 06:40 Neut % (Auto) 78.2 % 10/16/23 06:40 Lymph % (Auto) 15.8 % 10/16/23 06:40 [place] % (Auto) 4.0 % 10/16/23 06:40 Eos % (Auto) 1.0 % 10/16/23 06:40 Baso % (Auto) 0.3 % 10/16/23 06:40 Neut # (Auto) 12.66 10^3/uL (1.8-7.7) H 10/16/23 06:40 Lymph # (Auto) 2.6 10^3/uL (0.8-4.8) 10/16/23 06:40 [place] # (Auto) 0.7 10^3/uL (0.2-0.9) 10/16/23 06:40 Eos # (Auto) 0.2 10^3/uL (0.0-0.8) 10/16/23 06:40 Baso # (Auto) 0.1 10^3/uL (0.0-0.1) 10/16/23 06:40 Nucleated RBC % (auto) 0 % 10/16/23 06:40 Nucleated RBCs # 0.0 /100WBC 10/16/23 06:40 Sodium 139 mmol/L (136-145) 10/16/23 06:40 Potassium 4.1 mmol/L (3.5-5.1) 10/16/23 06:40 Chloride 100 mmol/L (98-107) 10/16/23 06:40 Carbon Dioxide 20 mmol/L (22-29) L 10/16/23 06:40 Anion Gap 23.1 (5-19) H 10/16/23 06:40 BUN 16 mg/dL (8-23) 10/16/23 06:40 Creatinine 1.1 mg/dL (0.7-1.2) 10/16/23 06:40 GFR Calculation Not Reportable 10/16/23 06:40 Glucose 200 mg/dL (65-115) H 10/16/23 06:40 Calculated Osmolality 295 mOsm/kg (285-295) 10/16/23 06:40 Calcium 10.2 mg/dL (8.5-10.5) 10/16/23 06:40 Magnesium 1.9 mg/dL (1.7-2.3) 10/16/23 06:40 Total Bilirubin 0.6 mg/dL (0.15-1.2) 10/16/23 06:40 AST 25 U/L (0-40) 10/16/23 06:40 ALT 18 U/L (0-41) 10/16/23 06:40 Alkaline Phosphatase 96 U/L (40-130) 10/16/23 06:40 Total Protein 7.4 g/dL (6.6-8.7) 10/16/23 06:40 Albumin 4.9 g/dL (3.5-5.2) 10/16/23 06:40 Globulin 2.5 g/dL (1.3-4.6) 10/16/23 06:40 Lipase 46 U/L (13-60) 10/16/23 06:40 All radiology interpretation(s) finalized by discharge Discharge Plan Discharge Patient Disposition: Admitted As Inpatient Clinical Impression: SBO (small bowel obstruction), Abdominal pain, Nausea & vomiting Condition: Stable Prescriptions: No Action multivitamin Tablet 1 tab PO DAILY trazodone 50 mg tablet 50 mg PO BEDTIME oxybutynin chloride 10 mg tablet extended release 24hr 10 mg PO DAILY hydrocodone-acetaminophen 5-325 mg tablet 1 tab PO QID PRN (Reason: Pain) calcium carbonate-vitamin D3 600 mg(1,500mg) -200 unit Tablet 1 tab PO DAILY cyanocobalamin (vitamin B-12) [Vitamin B-12] 500 mcg Tablet 500 mcg PO DAILY ascorbic acid (vitamin C) [Vitamin C] 500 mg Tablet 500 mg PO BID ferrous sulfate [iron] 325 mg (65 mg iron) Tablet 325 mg PO DAILY buspirone 10 mg tablet 10 mg PO BID diphenhydramine HCl [Benadryl Allergy] 25 mg Tablet 50 mg PO QAM PRN (Reason: Allergy Symptoms) albuterol sulfate [ProAir HFA] 90 mcg/actuation HFA aerosol inhaler 2 puff INHALATION Q4H PRN (Reason: Shortness Of Breath) paroxetine HCl 40 mg tablet 40 mg PO DAILY cholecalciferol (vitamin D3) [Vitamin D3] 50 mcg (2,000 unit) Capsule 50 mcg PO DAILY aspirin 81 mg tablet,delayed release (DR/EC) 81 mg PO DAILY Qty: 30 0RF atorvastatin 20 mg tablet 20 mg PO BEDTIME amitriptyline 25 mg tablet 25 mg PO BEDTIME Referrals: Milind Lopez [Primary Care Provider] - Coding Level of Care Code ED Director Of Managed Services for Igor Palma
[2023-10-16] MEDS: sodium chloride 0.9% 1,000 ML 999 ML IV (06:43)
[2023-10-16 06:55] LABS: Basophils # 0.1 10^3/uL (0.0-0.1); Basophils % 0.3 %; Eosinophils # 0.2 10^3/uL (0.0-0.8); Hematocrit 42.3 % (37-53); Lymphocytes # 2.6 10^3/uL (0.8-4.8); Lymphocytes % 15.8 %; Mean Corpuscular HGB Conc 33.1 g/dL (30-55); Mean Corpuscular Hemoglobin 29.9 pg (27-33); Mean Corpuscular Volume 90.2 fl (82-101); Mean Platelet Volume 9.2 fL (7.4-10.4); Monocytes # 0.7 10^3/uL (0.2-0.9); Neutrophils # 12.66 10^3/uL (1.8-7.7); Neutrophils % 78.2 %; Nucleated Red Blood Cells % 0 %; Platelet Count 366 10^3/cmm (157-399); Red Blood Count 4.69 10^6/uL (3.85-5.65); Red Cell Distribution Width 13.2 % (12.1-15.1); White Blood Count 16.21 10^3/uL (3.29-11.43)
[2023-10-16] MEDS: ondansetron 2 mg/ML SDV 2 mL 8 MG IVP ×2 (06:59→07:01)
[2023-10-16 07:09] LABS: Alanine Aminotransferase 18 U/L (0-41); Albumin Level 4.9 g/dL (3.5-5.2); Alkaline Phosphatase 96 U/L (40-130); Anion Gap 23.1 (5-19); Aspartate Amino Transferase 25 U/L (0-40); Blood Urea Nitrogen 16 mg/dL (8-23); Calcium 10.2 mg/dL (8.5-10.5); Carbon Dioxide 20 mmol/L (22-29); Chloride 100 mmol/L (98-107); Creatinine Clr Calc Pharmacy 54.2177; Globulin 2.5 g/dL (1.3-4.6); Glucose 200 mg/dL (65-115); Lipase 46 U/L (13-60); Magnesium 1.9 mg/dL (1.7-2.3); Osmolality Calculated 295 mOsm/kg (285-295); Potassium 4.1 mmol/L (3.5-5.1); Sodium 139 mmol/L (136-145); Total Bilirubin 0.6 mg/dL (0.15-1.2); Total Protein 7.4 g/dL (6.6-8.7)
[2023-10-16] MEDS: ketorolac 30 mg/mL INJ IVP (07:14)
[2023-10-16] MEDS: promethazine 25 mg/mL SDV 1 mL IM (07:14)
--- NOTE | 2023-10-16 08:01 | CTR_ITS ---
PROCEDURE INFORMATION: Exam: CT Abdomen And Pelvis With Contrast Exam date and time: 10/16/2023 8:38 AM Age: 73 years old Clinical indication: Abdominal tenderness and bloating and constipation; Prior surgery; Surgery date: 6+ months; Surgery type: Gastric bypass 8 yr ago; Additional info: Abd pain , n/v TECHNIQUE: Imaging protocol: Computed tomography of the abdomen and pelvis with contrast. Radiation optimization: All CT scans at this facility use at least one of these dose optimization techniques: automated exposure control; mA and/or kV adjustment per patient size (includes targeted exams where dose is matched to clinical indication); or iterative reconstruction. Contrast material: OMNI 350; Contrast volume: 100 ml; Contrast route: INTRAVENOUS (IV); REPORTING DATA: Count of CT and Cardiac NM exams in prior 12 months: This patient has received 0 known CTs and 0 known cardiac nuclear medicine studies in the 12 months prior to the current study. COMPARISON: MR lumbar spine wo con* [id number] 02/14/2020 8:20 AM RADIATION DOSE METRICS: Total DLP (mGy-cm): 545.67 FINDINGS: Lungs: Slight probable atelectasis and/or fibrosis lung bases bilaterally. Coronary arteries: Probable coronary artery calcifications. Diaphragm: Small hiatal hernia. Fluid within distal esophagus suggesting gastroesophageal reflux. Liver: Liver unremarkable. Gallbladder and bile ducts: Mild prominence common duct, pancreatic duct. Gallbladder appears distended. Small densities of gallbladder projecting toward gallbladder neck posteriorly, suggesting stones/calculi, cholelithiasis. No marked gallbladder wall thickening nor pericholecystic fluid seen. Pancreas: Pancreas appears atrophic. Spleen: Spleen unremarkable. Adrenal glands: Adrenals unremarkable. Kidneys and ureters: Kidneys show evidence of enhancement. Small circumscribed hypodense focus compatible with cyst lower right kidney. 5 mm nonobstructing calcific stone/calculus mid to upper right kidney posteromedially. Stomach and bowel: Postoperative changes stomach. Stomach appears partly filled with fluid, gas. Extensive dilated small bowel containing gas and fluid. Evidence of small bowel feces/fecalization suggesting stasis. Portions of colon appear decompressed. Moderate stool and gas of rectum, rectosigmoid colon. Terminal ileum appears relatively decompressed. Also evidence of relatively decompressed small bowel mid abdomen. Evidence of patent anastomosis of small bowel anterior abdomen near midline. Tiny gas densities along portions of bowel ko may within lumen, though pneumatosis excluded. No portal venous gas seen. Appendix: No acute appendicitis seen. Intraperitoneal space: No free intraperitoneal air and no free abdominal or pelvic fluid collections seen. Vasculature: Circumaortic left renal vein. Atherosclerotic disease, ectasia abdominal aorta. Lymph nodes: Scattered small lymph nodes, nonspecific. Urinary bladder: Urinary bladder appears partly filled. Reproductive: Prostate appears heterogeneous. Seminal vesicles unremarkable. Bones/joints: Degenerative changes spine. Soft tissues: Unremarkable. CT/CT abdomen pelvis w con* [id number] IMPRESSION: 1. Findings suspicious for small bowel obstruction . Pneumatosis not excluded. Ileus or other process not completely ruled. 2. Findings suggesting cholelithiasis. 3. Nonobstructing stone/calculus right kidney. 4. Small hiatal hernia. Fluid within distal esophagus suggesting gastroesophageal reflux. 5. Please see body of report for findings. COMMENTS: Consistent with the [employer]'s Incidental Findings Committee white paper (J Am Kitty Radiol 2018): Any incidental renal lesion less than 1 cm or classified as too small to characterize, or any incidental cystic renal lesion characterized as simple-appearing, is likely benign. No follow-up imaging is recommended for these lesions per consensus recommendations based on imaging criteria.
[2023-10-16] MEDS: iohexol 350 mg/mL 500 mL Btl (per mL) IV (08:42)
[2023-10-16 09:42] VITALS: RESP 17; O2SAT 95
[2023-10-16] MEDS: morphine 4 mg/mL SDV 1 mL IVP ×2 (09:42→14:39)
--- NOTE | 2023-10-16 10:23 | PC.NURSE ---
Attempted NG tube in both nostrils of patient. Patient informed me he has had multiple nasal surgeries years ago and he has had problems with his nose every since. When attempting to insert the NG tube in either nostril it felt like I was hitting a brick wall and the more I tried to reposition or go around his nare on both sides started to bleed. I consulted with Dr. Leonard and he said that at this time since we had the patient's vomiting under control we would not put the NG tube in and we would control his vomiting with medication.
[2023-10-16] MEDS: sodium chloride 0.9% 1,000 ML 150 ML IV ×2 (10:33→20:40)
[2023-10-16 10:45] LABS: Lactic Sepsis W/Reflex 3.6 mmol/L (0.5-2.2)
--- NOTE | 2023-10-16 12:05 | PM.HP ---
Providers/Chief Complaint Admitting Physician: Hakan Win Primary Care Provider: Milind Lopez Chief Complaint: ABD PAIN History of Present Illness Pleasant 73 old gentleman came into the ER due to abdominal distention, discomfort, severe recurrent dry heaving, unable to keep anything down. With leukocytosis 16.2, afebrile, sinus tachycardia in the 90s, lipase unremarkable, CT abdomen pelvis with findings suspicious for small bowel obstruction, pneumatosis not excluded, ileus or other process not completely ruled out. Incidentally noted suggestion of cholelithiasis, nonobstructing stone calculus in the right kidney, small hiatal hernia fluid within distal esophagus suggesting gastroesophageal reflux. Surgery was contacted in ER. He received fluid bolus, antiemetics, pain medication. Review of Systems Const: Denies: fever(s), chills, body aches or malaise ENMT: Denies: throat pain Card: Denies: chest pain, edema, pre-syncope or dyspnea on exertion Resp: Denies: dyspnea, productive cough, change in phlegm color or hemoptysis GI: Reports: abdominal pain, nausea, bloating, belching and other (dry heaving); Denies: diarrhea, constipation, hematochezia or melena : Denies: flank pain, difficulty urinating, urinary frequency or hematuria Musc: Denies: back pain, joint swelling or joint redness Skin/Breast: Denies: rash or new lesions Neuro: Denies: headache(s), numbness in extremities, weakness in extremities, dizziness, confusion or seizure-like activity Medications/Allergies Home Medications Medication Instructions Recorded Confirmed Last Taken Type albuterol sulfate 90 mcg/actuation 2 puff inhalation Q4H PRN 12/22/21 10/16/23 04/29/22 History aerosol inhaler (ProAir HFA) Shortness Of Breath ascorbic acid (vitamin C) 500 mg 500 mg PO BID 12/22/21 10/16/23 10/15/23 History tablet (Vitamin C) aspirin 81 mg tablet,delayed 81 mg PO DAILY #30 tabs 12/22/21 10/16/23 10/15/23 Rx release buspirone 10 mg tablet 10 mg PO BID 12/22/21 10/16/23 10/15/23 History calcium carbonate 600 mg-vitamin 1 tab PO DAILY 12/22/21 10/16/23 10/15/23 History D3 5 mcg (200 unit) tablet cholecalciferol (vitamin D3) 50 50 mcg PO DAILY 12/22/21 10/16/23 10/15/23 History mcg (2,000 unit) capsule (Vitamin D3) cyanocobalamin (vitamin B-12) 500 500 mcg PO DAILY 12/22/21 10/16/23 10/15/23 History mcg tablet (Vitamin B-12) diphenhydramine HCl 25 mg tablet 50 mg PO QAM PRN Allergy Symptoms 12/22/21 10/16/23 10/15/23 History (Benadryl Allergy) ferrous sulfate 325 mg (65 mg 325 mg PO DAILY 12/22/21 10/16/23 10/15/23 History iron) tablet (iron) hydrocodone 5 mg-acetaminophen 325 1 tab PO QID PRN Pain 12/22/21 10/16/23 10/15/23 History mg tablet multivitamin 1 tab PO DAILY 12/22/21 10/16/23 10/15/23 History oxybutynin chloride 10 mg 10 mg PO DAILY 12/22/21 10/16/23 10/15/23 History tablet,extended release 24 hr paroxetine HCl 40 mg tablet 40 mg PO DAILY 12/22/21 10/16/23 10/15/23 History trazodone 50 mg tablet 50 mg PO BEDTIME 12/22/21 10/16/23 10/15/23 History amitriptyline 25 mg tablet 25 mg PO BEDTIME 10/16/23 10/16/23 10/15/23 History atorvastatin 20 mg tablet 20 mg PO BEDTIME 10/16/23 10/16/23 10/15/23 History Allergies Allergy/AdvReac Type Severity Reaction Status Date / Time Penicillins Allergy ALGY-Anaphy Unverified 10/16/23 12:12 laxis PFSH Acute PFSH: Medical History (Updated 10/16/23 @ 10:17 by Neri Leonard DO) Hx of cataract No significant past medical history Temporal arteritis Transient global amnesia Surgical History (Updated 10/16/23 @ 12:11 by Hakan Win MD) History of biopsy of temporal artery bilateral done 05/04/22-Dr. Garza History of knee replacement procedure of left knee History of knee replacement procedure of right knee Hx of colonoscopy 10 plus years ago Hx of gastric bypass Hx of hernia repair 3 total Hx of tonsillectomy No significant past surgical history S/P surgery on nasal septum Social History Smoking and tobacco/nicotine status: never used tobacco/nicotine Alcohol intake: unknown Vitals/I&O/Wt Last Vital Signs Temp 97.5 F L 10/16/23 06:20 Pulse 97 10/16/23 06:20 Resp 17 10/16/23 09:42 BP 129/83 10/16/23 06:20 Pulse Ox 95 10/16/23 09:42 10/15/23 10/16/23 10/16/23 22:59 06:59 14:59 Intake Total 1000 / 1000 Balance 1000 / 1000 Weight last 48 hrs Weight 63.503 kg Physical Exam Narrative: Accompanied by his Const: COMMON NORMALS: patient oriented x3 and alert GENERAL APPEARANCE: cooperative ORIENTATION/CONSCIOUSNESS: Yes awake HENMT: COMMON NORMALS: oropharynx normal Neck/C-Spine: COMMON NORMALS: no JVD Resp: COMMON NORMALS: normal respiratory effort and clear to auscultation bilaterally AUSCULTATION: clear to auscultation bilaterally Cardio: COMMON NORMALS: no JVD, regular rhythm, S1 normal heart sound present, S2 normal heart sound present and No murmurs present (Cardio) RHYTHM: regular rhythm HEART SOUNDS: S1 normal heart sound present and S2 normal heart sound present GI: COMMON NORMALS: Soft to palpation INSPECTION: Yes abdominal distension PALPATION: Yes Soft to palpation Extremity: COMMON NORMALS: no joint enlargement and no pedal edema Neuro: COMMON NORMALS: patient oriented x3 and moves all extremities SENSORIUM/ORIENTATION: Yes alert Skin: COMMON NORMALS: no rashes or lesions noted GENERAL SKIN EXAM: no rashes or lesions noted Data 10/16/23 06:40 10/16/23 06:40 A&P Assessment and plan (1) SBO (small bowel obstruction): SBO, unable to tolerate oral nutrition hydration or medications. Question of pneumatosis not excluded on CT. Abdominal pain has improved. Abdomen currently pain-free, distended but soft. Lactic acid requested. NGT was attempted in ER, could not be placed, he does have history of nasal septal surgery, some transient epistaxis with attempt has improved. Pending surgery assessment. Bowel rest, NPO. IV fluid hydration. Antiemetics. Pain medication. At risk of electrolyte and fluid shifts. Reassess chemistry. Monitor volume status, electrolytes, reviewed vitals, CBC, CMP, lipase, contrast CT abdomen pelvis, discussed with ER physician, I reviewed ER documentation. (2) Abdominal pain: As above. Analgesics as needed. Qualifiers: Abdominal location: generalized Qualified Code(s): R10.84 - Generalized abdominal pain (3) Nausea & vomiting: Did not have a significant improvement with Zofran, did respond somewhat to promethazine, but still nauseated, dry heaving again, repeat promethazine given. Qualifiers: Vomiting type: unspecified Qualified Code(s): R11.2 - Nausea with vomiting, unspecified Plan Temporal arteritis history Attestations Medical Necessity Statement*: Admission of over 2 midnights anticipated for assessment management of SBO. Diagnoses SBO (small bowel obstruction) K56.609 Abdominal pain R10.84 Abdominal location: generalized Nausea & vomiting R11.2 Vomiting type: unspecified
[2023-10-16 12:06] LABS: Reflex Lactate Order REFLEX LACTIC ORDERD
[2023-10-16 13:01] LABS: Lactic Acid level (Lactate) 1.7 mmol/L (0.5-2.2)
[2023-10-16 13:23] VITALS: BMI 23.7
[2023-10-16] MEDS: heparin 5,000 unit/mL INJ 1 mL 5000 UNIT SUBCUT ×2 (14:38→23:25)
[2023-10-16] MEDS: pantoprazole 40 mg SDV IVP (14:38)
[2023-10-16 14:39] VITALS: RESP 20
[2023-10-16 15:25] VITALS: BP 185/88; PULSE 100; RESP 18; TEMP 37.2; O2SAT 92
[2023-10-16 20:11] VITALS: BP 148/78; PULSE 100; RESP 16; TEMP 37.6; O2SAT 92
[2023-10-17] VITALS (10 sets, daily range): BP systolic 133–166; BP diastolic 67–89; PULSE 75–97; RESP 15–18; TEMP 36.6–37.5; O2SAT 92–97
[2023-10-17] MEDS: sodium chloride 0.9% 1,000 ML 150 ML IV (04:06)
[2023-10-17 04:09] LABS: Basophils % 0.2 %; Eosinophils % 0.1 %; Hematocrit 33.4 % (37-53); Lymphocytes % 8.4 %; Mean Corpuscular Hemoglobin 29.7 pg (27-33); Mean Corpuscular Volume 92.8 fl (82-101); Mean Platelet Volume 9.4 fL (7.4-10.4); Monocytes # 0.7 10^3/uL (0.2-0.9); Monocytes % 5.8 %; Nucleated Red Blood Cells % 0 %; Platelet Count 261 10^3/cmm (157-399); Red Cell Distribution Width 13.6 % (12.1-15.1); White Blood Count 12.24 10^3/uL (3.29-11.43)
[2023-10-17 04:38] LABS: Anion Gap 13.7 (5-19); Blood Urea Nitrogen 21 mg/dL (8-23); Calcium 8.2 mg/dL (8.5-10.5); Carbon Dioxide 23 mmol/L (22-29); Chloride 106 mmol/L (98-107); Glucose 134 mg/dL (65-115); Osmolality Calculated 293 mOsm/kg (285-295); Potassium 3.7 mmol/L (3.5-5.1); Sodium 139 mmol/L (136-145)
--- NOTE | 2023-10-17 08:07 | PM.CONSULT ---
Providers/Reason For Consult Consulting Physician/Specialty*: Dr. Ez Garza, DO/General surgery Reason for Consult*: Abdominal pain Attending Physician: Hakan Win Primary Care Provider: Milind Lopez History of Present Illness History of Present Illness Swapnil Cr is a 73 year old male who presented to the hospital with 1 day history of diffuse abdominal pain nausea and emesis. Palpation makes pain worse. Nothing makes pain better. Pain was crampy and constant. He denies any hematemesis. He reports now, however, that his abdominal pain nausea and emesis have resolved. He has not had a bowel movement in 4 days. The day he presents to the hospital he had taken 2 laxatives but has not had a bowel movement. He then developed nausea and vomiting. He denies any sick contacts. Denies any recent travel. He does not believe that he ate anything bad. He is passing flatus. Denies any fever or chills Review of Systems General: Reports: 10 or more systems reviewed and unremarkable except in HPI and below Medications/Allergies Home Medications Medication Instructions Recorded Confirmed Last Taken Type albuterol sulfate 90 mcg/actuation 2 puff inhalation Q4H PRN 12/22/21 10/16/23 04/29/22 History aerosol inhaler (ProAir HFA) Shortness Of Breath ascorbic acid (vitamin C) 500 mg 500 mg PO BID 12/22/21 10/16/23 10/15/23 History tablet (Vitamin C) aspirin 81 mg tablet,delayed 81 mg PO DAILY #30 tabs 12/22/21 10/16/23 10/15/23 Rx release buspirone 10 mg tablet 10 mg PO BID 12/22/21 10/16/23 10/15/23 History calcium carbonate 600 mg-vitamin 1 tab PO DAILY 12/22/21 10/16/23 10/15/23 History D3 5 mcg (200 unit) tablet cholecalciferol (vitamin D3) 50 50 mcg PO DAILY 12/22/21 10/16/23 10/15/23 History mcg (2,000 unit) capsule (Vitamin D3) cyanocobalamin (vitamin B-12) 500 500 mcg PO DAILY 12/22/21 10/16/23 10/15/23 History mcg tablet (Vitamin B-12) diphenhydramine HCl 25 mg tablet 50 mg PO QAM PRN Allergy Symptoms 12/22/21 10/16/23 10/15/23 History (Benadryl Allergy) ferrous sulfate 325 mg (65 mg 325 mg PO DAILY 12/22/21 10/16/23 10/15/23 History iron) tablet (iron) hydrocodone 5 mg-acetaminophen 325 1 tab PO QID PRN Pain 12/22/21 10/16/23 10/15/23 History mg tablet multivitamin 1 tab PO DAILY 12/22/21 10/16/23 10/15/23 History oxybutynin chloride 10 mg 10 mg PO DAILY 12/22/21 10/16/23 10/15/23 History tablet,extended release 24 hr paroxetine HCl 40 mg tablet 40 mg PO DAILY 12/22/21 10/16/23 10/15/23 History trazodone 50 mg tablet 50 mg PO BEDTIME 12/22/21 10/16/23 10/15/23 History amitriptyline 25 mg tablet 25 mg PO BEDTIME 10/16/23 10/16/23 10/15/23 History atorvastatin 20 mg tablet 20 mg PO BEDTIME 10/16/23 10/16/23 10/15/23 History Allergies Allergy/AdvReac Type Severity Reaction Status Date / Time Penicillins Allergy ALGY-Anaphy Unverified 10/16/23 12:12 laxis Current Medications Generic Name Dose Route Start Last Admin Trade Name Freq PRN Reason Stop Dose Admin Heparin Sodium (Porcine) 5,000 unit 10/16/23 11:45 10/16/23 23:25 Heparin 5,000 Unit/Ml Inj 1 Ml SUBCUT 5,000 unit Q12H RYLEE Administration Sodium Chloride 1,000 mls @ 150 mls/hr 10/16/23 10:15 10/17/23 04:06 Sodium Chloride 0.9% IV 150 mls/hr .Q6H40M RYLEE Administration Morphine Sulfate 4 mg 10/16/23 11:36 10/16/23 14:39 Morphine 4 Mg/Ml Sdv 1 Ml IVP 4 mg Q4H PRN Administration SEVERE PAIN Pantoprazole Sodium 40 mg 10/16/23 11:45 10/16/23 14:38 Pantoprazole 40 Mg Sdv IVP 40 mg Q24H RYLEE Administration PFSH Acute PFSH: Medical History Hx of cataract No significant past medical history Temporal arteritis Transient global amnesia Surgical History History of biopsy of temporal artery bilateral done 05/04/22-Dr. Garza History of knee replacement procedure of left knee History of knee replacement procedure of right knee Hx of colonoscopy 10 plus years ago Hx of gastric bypass Hx of hernia repair 3 total Hx of tonsillectomy No significant past surgical history S/P surgery on nasal septum Social History Smoking and tobacco/nicotine status: never used tobacco/nicotine Alcohol intake: unknown Vitals/I&O/Wt Last Vital Signs Temp 98.9 F 10/17/23 07:48 Pulse 95 10/17/23 08:03 Resp 16 10/17/23 08:03 BP 163/80 10/17/23 07:48 Pulse Ox 94 10/17/23 08:03 O2 Del Method Room Air 10/17/23 08:03 10/16/23 10/17/23 10/17/23 22:59 06:59 14:59 Intake Total 1000 / 2000 1000 / 3000 Balance 1000 / 2000 1000 / 3000 Weight last 48 hrs Weight 154 lb 3 oz Weight 151 lb 8 oz Weight 140 lb Physical Exam Narrative: General : Patient is well developed , no acute distress, oriented x3 Head : Normal cephalic, a-traumatic. Ears : Pinnae and external canal are normal. Hearing is normal. Eyes : PERRLA, Sclera and injection are normal. No conjunctival discharge. Nose : Mucous membranes are without erythema. Throat : buccal mucosa is normal, gums are without significant recession or hypertrophy. Lungs : Equal chest rise bilaterally, no use of accessory muscles, trachea is midline. Cor : Rate and rhythm are normal. Abdomen : Soft, ND, NT, no g/r/m Extremities : No edema, no cyanosis or clubbing, dorsalis pedis pulses are present bilaterally, non-tender to palpation of calves. Upper extremities are normal bilaterally. Back : non-tender to palpation, no CVA tenderness. Neuro : CN II - XII intact, Upper and lower extremities have equal and full strength Data 10/17/23 03:11 10/17/23 03:11 A&P Assessment and plan (1) Gastroenteritis: (2) Constipation: Plan This is a self-limiting disease. It is also possible that the laxatives he took that did not work to have a bowel movement and due to the nausea vomiting and abdominal pain. Regular diet 1 bottle magnesium citrate No acute surgical intervention. Surgically stable for discharge Medical management per primary Coding Level of Care Code 84978 Diagnoses Gastroenteritis K52.9 Constipation K59.00
[2023-10-17] MEDS: magnesium citrate Btl 296 mL PO (08:13)
[2023-10-17] MEDS: acetaminophen 325 mg Tablet 650 MG PO ×2 (09:20→20:17)
[2023-10-17] MEDS: morphine 4 mg/mL SDV 1 mL IVP (10:06)
[2023-10-17] MEDS: pantoprazole 40 mg SDV IVP (11:41)
[2023-10-17] MEDS: heparin 5,000 unit/mL INJ 1 mL 5000 UNIT SUBCUT (11:42)
[2023-10-17] MEDS: HYDROcodone-acetaminophen 5-325 mg Tablet 1 TAB PO (14:56)
[2023-10-17] MEDS: BuSPIRONE 10 mg Tablet PO (17:14)
[2023-10-17] MEDS: trazodone 50 mg Tablet PO (20:16)
[2023-10-17] MEDS: amitriptyline 25 mg Tablet PO (20:16)
[2023-10-17] MEDS: atorvastatin 40 mg Tablet PO (20:16)
--- NOTE | 2023-10-17 21:17 | PM.PN ---
Subjective Subjective: He reports he is doing better today. Raving is resolved. Tolerating trial of clear liquids, would like to advance to something more substantial. Vitals/I&O/Wt Last Vital Signs Temp 98.1 F 10/17/23 19:23 Pulse 76 10/17/23 21:08 Resp 16 10/17/23 21:08 BP 166/89 10/17/23 19:23 Pulse Ox 97 10/17/23 21:08 O2 Del Method Room Air 10/17/23 21:08 10/17/23 10/17/23 10/17/23 06:59 14:59 22:59 Intake Total 1000 / 3000 1180 / 1180 480 / 1660 Balance 1000 / 3000 1180 / 1180 480 / 1660 Weight last 48 hrs Weight 69.938 kg Weight 68.719 kg Weight 63.503 kg Physical Exam Narrative: Accompanied by his during second visit Const: COMMON NORMALS: patient oriented x3 and alert GENERAL APPEARANCE: cooperative ORIENTATION/CONSCIOUSNESS: Yes awake HENMT: COMMON NORMALS: oropharynx normal Neck/C-Spine: COMMON NORMALS: no JVD Resp: COMMON NORMALS: normal respiratory effort and clear to auscultation bilaterally AUSCULTATION: clear to auscultation bilaterally Cardio: COMMON NORMALS: no JVD, regular rhythm, S1 normal heart sound present, S2 normal heart sound present and No murmurs present (Cardio) RHYTHM: regular rhythm HEART SOUNDS: S1 normal heart sound present and S2 normal heart sound present GI: COMMON NORMALS: Soft to palpation INSPECTION: Yes abdominal distension PALPATION: Yes Soft to palpation Extremity: COMMON NORMALS: no joint enlargement and no pedal edema Neuro: COMMON NORMALS: patient oriented x3 and moves all extremities SENSORIUM/ORIENTATION: Yes alert Skin: COMMON NORMALS: no rashes or lesions noted GENERAL SKIN EXAM: no rashes or lesions noted Data 10/17/23 03:11 10/17/23 03:11 A&P Assessment and plan (1) Acute anemia: Noted a decrease in hemoglobin from 14-10.7 this morning. He did receive fluid resuscitation. Possibly dilutional component, although he does have history of iron deficiency also after gastric bypass. Still acute anemia, GI blood loss or other is not entirely excluded. Reviewed platelet levels, WNL. Discussed with him additional reassessment of CBC to exclude further rapid decrease. Obtain Hemoccult. Hold prophylactic heparin. Reviewed MCV, noted WNL. Will also check folate, B12, TSH. (2) SBO (small bowel obstruction): Resolved. Reviewed surgery note. Trial of oral diet. SBO, on admission unable to tolerate oral nutrition hydration or medications. Question of pneumatosis not excluded on CT. Abdominal pain has improved. Abdomen currently pain-free, distended but soft. Lactic acid requested. NGT was attempted in ER, could not be placed, he does have history of nasal septal surgery, some transient epistaxis with attempt has improved. Pending surgery assessment. DC IVF. (3) Abdominal pain: As above. Analgesics as needed. Qualifiers: Abdominal location: generalized Qualified Code(s): R10.84 - Generalized abdominal pain (4) Nausea & vomiting: Did not have a significant improvement with Zofran, did respond somewhat to promethazine, but still nauseated, dry heaving again, repeat promethazine given. Qualifiers: Vomiting type: unspecified Qualified Code(s): R11.2 - Nausea with vomiting, unspecified Plan Temporal arteritis history Attestations Medical Necessity Statement*: Continue admission for assessment management of acute anemia. Diagnoses Acute anemia D64.9 SBO (small bowel obstruction) K56.609 Abdominal pain R10.84 Abdominal location: generalized Nausea & vomiting R11.2 Vomiting type: unspecified
[2023-10-18 03:55] VITALS: BP 148/81; PULSE 76; RESP 16; TEMP 36.8; O2SAT 97
[2023-10-18 04:58] LABS: Basophils % 0.4 %; Eosinophils # 0.3 10^3/uL (0.0-0.8); Eosinophils % 4.7 %; Hematocrit 31.9 % (37-53); Lymphocytes % 29.1 %; Mean Corpuscular HGB Conc 31.7 g/dL (30-55); Mean Corpuscular Hemoglobin 30.1 pg (27-33); Mean Corpuscular Volume 94.9 fl (82-101); Mean Platelet Volume 9.2 fL (7.4-10.4); Monocytes # 0.4 10^3/uL (0.2-0.9); Monocytes % 5.3 %; Neutrophils # 4.09 10^3/uL (1.8-7.7); Neutrophils % 60.4 %; Nucleated Red Blood Cells % 0 %; Platelet Count 219 10^3/cmm (157-399); Red Blood Count 3.36 10^6/uL (3.85-5.65); Red Cell Distribution Width 13.4 % (12.1-15.1); White Blood Count 6.78 10^3/uL (3.29-11.43)
[2023-10-18 05:21] LABS: Anion Gap 11.6 (5-19); Blood Urea Nitrogen 13 mg/dL (8-23); Calcium 8.2 mg/dL (8.5-10.5); Carbon Dioxide 26 mmol/L (22-29); Chloride 104 mmol/L (98-107); Glucose 92 mg/dL (65-115); Osmolality Calculated 286 mOsm/kg (285-295); Potassium 3.6 mmol/L (3.5-5.1); Sodium 138 mmol/L (136-145)
[2023-10-18 05:39] LABS: Folate Level 19.8 ng/mL (4.5-32.2)
[2023-10-18 06:06] LABS: Ferritin 133 ng/mL (30-400); Thyroid Stimulating Hormone 1.69 uIU/mL (0.27-4.20); Unsaturated Iron Binding 135 ug/dL (112-347); Vitamin B12 633 pg/mL (232-1245)
[2023-10-18 06:26] LABS: Iron 86 ug/dL (59-158); Percent Saturation 39.8 % (20-50); Total Iron Binding Capacity 216 mcg/dl
[2023-10-18 08:00] VITALS: BP 140/70; PULSE 90; RESP 15; TEMP 36.4; O2SAT 93
[2023-10-18 08:01] VITALS: PULSE 96; RESP 18; O2SAT 93
--- NOTE | 2023-10-18 08:20 | PM.PN ---
Subjective Subjective: Patient seen and examined. Abdominal pain nausea and vomiting have resolved. Patient reports having multiple bowel movements without seeing any bloody or black stools Vitals/I&O/Wt Last Vital Signs Temp 97.6 F 10/18/23 08:00 Pulse 96 10/18/23 08:01 Resp 18 10/18/23 08:01 BP 140/70 10/18/23 08:00 Pulse Ox 93 10/18/23 08:01 O2 Del Method Room Air 10/18/23 08:01 10/17/23 10/18/23 10/18/23 22:59 06:59 14:59 Intake Total 480 / 1660 240 / 240 Balance 480 / 1660 240 / 240 Weight last 48 hrs Weight 152 lb 3 oz Weight 154 lb 3 oz Weight 151 lb 8 oz Physical Exam Narrative: General: No acute distress, awake alert and oriented x 3 Abdomen: Soft, nontender, nondistended Data 10/18/23 04:21 10/18/23 04:21 A&P Assessment and plan (1) Gastroenteritis: (2) Constipation: Plan This is a self-limiting disease. It is also possible that the laxatives he took that did not work to have a bowel movement and due to the nausea vomiting and abdominal pain. Hemoglobin has remained stable. He has a history of iron deficiency anemia. Regular diet No acute surgical intervention. Surgically stable for discharge Medical management per primary Attestations Medical Necessity Statement*: Per primary Coding Level of Care Code 09349 Diagnoses Gastroenteritis K52.9 Constipation K59.00
[2023-10-18] MEDS: BuSPIRONE 10 mg Tablet PO (10:11)
[2023-10-18] MEDS: ferrous sulfate EC 325 mg Tablet PO (10:11)
[2023-10-18] MEDS: oxybutynin chloride XL 5 MG TABLET 10 MG PO (10:11)
[2023-10-18] MEDS: aspirin 81 mg EC Tablet PO (10:12)
[2023-10-18] MEDS: PARoxetine 20 mg Tablet 40 MG PO (10:12)
[2023-10-18 11:41] VITALS: BP 165/93; PULSE 90; RESP 17; TEMP 36.4; O2SAT 95
[2023-10-18] MEDS: pantoprazole 40 mg SDV IVP (12:47)
--- NOTE | 2023-10-18 12:50 | P.DS_ITS ---
Discharge Providers Date of Admission: 10/16/23 10:17 Date of Discharge: October 18, 2023 Attending Provider at Admission: Hakan Win Attending Provider at Discharge: Hosea Roy MD Consults: Surgery: Dr. Garza Primary Care Provider: Milind Lopez Diagnoses at Discharge Discharge Diagnosis (1) Gastroenteritis: Status: Acute (2) Constipation: Status: Acute Reason for Visit Reason for Visit: ABD PAIN Brief History: History as per HPI: Pleasant 73 old gentleman came into the ER due to abdominal distention, discomfort, severe recurrent dry heaving, unable to keep anything down.? With leukocytosis 16.2, afebrile, sinus tachycardia in the 90s, lipase unremarkable, CT abdomen pelvis with findings suspicious for small bowel obstruction, pneumatosis not excluded, ileus or other process not completely ruled out.? Incidentally noted suggestion of cholelithiasis, nonobstructing stone calculus in the right kidney, small hiatal hernia fluid within distal esophagus suggesting gastroesophageal reflux.? Surgery was contacted in ER.? He received fluid bolus, antiemetics, pain medication. Hospital Course Hospital Course Patient was admitted to the hospital for further evaluation and management of small bowel obstruction. Surgery was consulted and he was treated with conservative treatment plan with bowel rest and IV fluids. Patient responded well to the treatment and has been passing flatus with 1 bowel movement. During hospitalization his hemoglobin from admission dropped from 14-10.7 with concerns for dilutional numbers. His hemoglobin afterwards remained stable around 10.5- 10. Patient did not have any active signs of bleeding. He has been discharged imminently stable condition with advised to take multiple small meals during the day, PPI treatment with advised to follow-up with primary care provider within the next 1 week for repeat CBC. If hemoglobin drops furth er patient would need a colonoscopy. Physical Exam Const: COMMON NORMALS: patient oriented x3 and alert GENERAL APPEARANCE: cooperative ORIENTATION/CONSCIOUSNESS: Yes awake HENMT: COMMON NORMALS: oropharynx normal Neck/C-Spine: COMMON NORMALS: no JVD Resp: COMMON NORMALS: normal respiratory effort and clear to auscultation bilaterally AUSCULTATION: clear to auscultation bilaterally Cardio: COMMON NORMALS: no JVD, regular rhythm, S1 normal heart sound present, S2 normal heart sound present and No murmurs present (Cardio) RHYTHM: regular rhythm HEART SOUNDS: S1 normal heart sound present and S2 normal heart sound present GI: COMMON NORMALS: Soft to palpation INSPECTION: Yes abdominal distension PALPATION: Yes Soft to palpation Extremity: COMMON NORMALS: no joint enlargement and no pedal edema Neuro: COMMON NORMALS: patient oriented x3 and moves all extremities SENSORIUM/ORIENTATION: Yes alert Skin: COMMON NORMALS: no rashes or lesions noted GENERAL SKIN EXAM: no rashes or lesions noted Discharge Data Studies Completed and Pending Completed Studies During Hospitalization Category Date Time Status CT abdomen pelvis w con* [id number] Stat Cat Scan 10/16/23 08:01 Completed Pending at discharge Category Date Time Status Basic Metabolic Panel AM LABS Lab 10/19/23 04:00 Ordered Complete Blood Count w/Auto AM LABS Lab 10/19/23 04:00 Ordered Occult Blood Stool [Immunochemical Fecal OCB] Routine Lab 10/17/23 21:33 Uncollected Radiology Impressions Abdomen/Pelvis CT 10/16/23 08:01 IMPRESSION: 1. Findings suspicious for small bowel obstruction . Pneumatosis not excluded. Ileus or other process not completely ruled. 2. Findings suggesting cholelithiasis. 3. Nonobstructing stone/calculus right kidney. 4. Small hiatal hernia. Fluid within distal esophagus suggesting gastroesophageal reflux. 5. Please see body of report for findings. COMMENTS: Consistent with the [employer]'s Incidental Findings Committee white paper (J Am Kitty Radiol 2018): Any incidental renal lesion less than 1 cm or classified as too small to characterize, or any incidental cystic renal lesion characterized as simple-appearing, is likely benign. No follow-up imaging is recommended for these lesions per consensus recommendations based on imaging criteria. Laboratory Results WBC 6.78 10^3/uL (3.29-11.43) 10/18/23 04:21 RBC 3.36 10^6/uL (3.85-5.65) L 10/18/23 04:21 Hgb 10.10 g/dL (11.27-16.99) L 10/18/23 04:21 Hct 31.9 % (37-53) L 10/18/23 04:21 MCV 94.9 fl (82-101) 10/18/23 04:21 MCH 30.1 pg (27-33) 10/18/23 04:21 MCHC 31.7 g/dL (30-55) 10/18/23 04:21 RDW 13.4 % (12.1-15.1) 10/18/23 04:21 Plt Count 219 10^3/cmm (157-399) 10/18/23 04:21 MPV 9.2 fL (7.4-10.4) 10/18/23 04:21 Neut % (Auto) 60.4 % 10/18/23 04:21 Lymph % (Auto) 29.1 % 10/18/23 04:21 [place] % (Auto) 5.3 % 10/18/23 04:21 Eos % (Auto) 4.7 % 10/18/23 04:21 Baso % (Auto) 0.4 % 10/18/23 04:21 Neut # (Auto) 4.09 10^3/uL (1.8-7.7) 10/18/23 04:21 Lymph # (Auto) 2.0 10^3/uL (0.8-4.8) 10/18/23 04:21 [place] # (Auto) 0.4 10^3/uL (0.2-0.9) 10/18/23 04:21 Eos # (Auto) 0.3 10^3/uL (0.0-0.8) 10/18/23 04:21 Baso # (Auto) 0.0 10^3/uL (0.0-0.1) 10/18/23 04:21 Nucleated RBC % (auto) 0 % 10/18/23 04:21 Nucleated RBCs # 0.0 /100WBC 10/18/23 04:21 Sodium 138 mmol/L (136-145) 10/18/23 04:21 Potassium 3.6 mmol/L (3.5-5.1) 10/18/23 04:21 Chloride 104 mmol/L (98-107) 10/18/23 04:21 Carbon Dioxide 26 mmol/L (22-29) 10/18/23 04:21 Anion Gap 11.6 (5-19) 10/18/23 04:21 BUN 13 mg/dL (8-23) 10/18/23 04:21 Creatinine 0.6 mg/dL (0.7-1.2) L 10/18/23 04:21 GFR Calculation Not Reportable 10/18/23 04:21 Glucose 92 mg/dL (65-115) 10/18/23 04:21 Calculated Osmolality 286 mOsm/kg (285-295) 10/18/23 04:21 Lactic Acid 3.6 mmol/L (0.5-2.2) H 10/16/23 06:40 Lactic Acid (Sepsis) 1.7 mmol/L (0.5-2.2) 10/16/23 12:23 Calcium 8.2 mg/dL (8.5-10.5) L 10/18/23 04:21 Magnesium 1.9 mg/dL (1.7-2.3) 10/16/23 06:40 Iron 86 ug/dL (59-158) 10/18/23 04:21 TIBC 216 mcg/dl 10/18/23 04:21 % Saturation 39.8 % (20-50) 10/18/23 04:21 Unsat Iron Binding 135 ug/dL (112-347) 10/18/23 04:21 Ferritin 133 ng/mL (30-400) 10/18/23 04:21 Total Bilirubin 0.6 mg/dL (0.15-1.2) 10/16/23 06:40 AST 25 U/L (0-40) 10/16/23 06:40 ALT 18 U/L (0-41) 10/16/23 06:40 Alkaline Phosphatase 96 U/L (40-130) 10/16/23 06:40 Total Protein 7.4 g/dL (6.6-8.7) 10/16/23 06:40 Albumin 4.9 g/dL (3.5-5.2) 10/16/23 06:40 Globulin 2.5 g/dL (1.3-4.6) 10/16/23 06:40 Lipase 46 U/L (13-60) 10/16/23 06:40 Vitamin B12 633 pg/mL (232-1245) 10/18/23 04:21 Folate 19.8 ng/mL (4.5-32.2) 10/18/23 04:21 TSH 1.69 uIU/mL (0.27-4.20) 10/18/23 04:21 Vitals Last Vital Signs Temp 97.6 F 10/18/23 11:41 Pulse 90 10/18/23 11:41 Resp 17 10/18/23 11:41 BP 165/93 10/18/23 11:41 Pulse Ox 95 10/18/23 11:41 O2 Del Method Room Air 10/18/23 11:41 Discharge Plan Discharge Patient Disposition: Home Condition: Stable Prescriptions: New Protonix 40 mg tablet,delayed release (DR/EC) 40 mg PO BID 14 Days Qty: 28 0RF Carafate 1 gram tablet 1 g PO TID 28 Days Qty: 84 0RF Continued multivitamin Tablet 1 tab PO DAILY trazodone 50 mg tablet 50 mg PO BEDTIME oxybutynin chloride 10 mg tablet extended release 24hr 10 mg PO DAILY hydrocodone-acetaminophen 5-325 mg tablet 1 tab PO QID PRN (Reason: Pain) calcium carbonate-vitamin D3 600 mg(1,500mg) -200 unit Tablet 1 tab PO DAILY cyanocobalamin (vitamin B-12) [Vitamin B-12] 500 mcg Tablet 500 mcg PO DAILY ascorbic acid (vitamin C) [Vitamin C] 500 mg Tablet 500 mg PO BID ferrous sulfate [iron] 325 mg (65 mg iron) Tablet 325 mg PO DAILY buspirone 10 mg tablet 10 mg PO BID diphenhydramine HCl [Benadryl Allergy] 25 mg Tablet 50 mg PO QAM PRN (Reason: Allergy Symptoms) albuterol sulfate [ProAir HFA] 90 mcg/actuation HFA aerosol inhaler 2 puff INHALATION Q4H PRN (Reason: Shortness Of Breath) paroxetine HCl 40 mg tablet 40 mg PO DAILY cholecalciferol (vitamin D3) [Vitamin D3] 50 mcg (2,000 unit) Capsule 50 mcg PO DAILY aspirin 81 mg tablet,delayed release (DR/EC) 81 mg PO DAILY Qty: 30 0RF atorvastatin 20 mg tablet 20 mg PO BEDTIME amitriptyline 25 mg tablet 25 mg PO BEDTIME Discharge Orders: Discharge Order (Routine); Ordered 10/18/23 Ordered By: Hosea Roy Referrals: Milind Lopez [Primary Care Provider] - 10/25/23 10:45 am Discharge Diet: Advance as tolerated Discharge Activity: Resume usual activity and Increase activity as tolerated Patient Instructions: Sucralfate (By mouth), Pantoprazole (By mouth), Gastroenteritis (DC), Opioid Safety Activity Restrictions/Additional Instructions: Please take multiple small meals. Advance gradually. For now continue taking Protonix twice daily along with Carafate before meals and at bedtime for next 1 week to 10 days. Continue with full liquid diet for now and gradually advance to mechanical soft and regular diet for the next 2 weeks. Repeat hemoglobin in 1 week Discharge Attestations Time Spent in Discharge Care*: greater than 30 min Specific Discharge Activities: educating patient, educating and/or supporting family/caregiver, discussing with pcp/other providers, discussing with case finisher/social workers/dc planners, documenting/other paperwork and evaluating patient/reviewing data Status at Discharge: Cognitive status at discharge: cognitively intact , Behavioral status at discharge: cooperative , Functional status at discharge: independent ambulation , Overall status at discharge: patient is back to baseline Quality Metrics Clinical Quality Measures [ No reported AMI, CVA or VTE this stay] Coding Level of Care Code 59955 Total time (in minutes) for Discharge: 60 Diagnoses Gastroenteritis K52.9 Constipation K59.00
--- NOTE | 2023-10-18 13:52 | PC.SOCIAL ---
IMM Update: pg 2 of IMM updated and reviewed w/ patient. Copy provided and copy dated, initialed and placed in chart.
--- NOTE | 2023-10-18 14:47 | PC.NURSE ---
patient verbalized understanding of discharge instructions home medications, and follow up appointments. Patient stated that he was going to call his ride.
[2023-10-18 15:32] VITALS: BP 165/93; PULSE 90; RESP 17; TEMP 36.4; O2SAT 95
== END 2023-10-18 15:33 | disposition home or self-care (01) | DRG 390 ==
LOC: ER 10:17 → MEDSURG 12:53
PROVIDERS: Admitting Provider Internal Medicine; Emergency Provider Emergency Medicine; PCP Family Medicine; Visit Provider Student in an Organized Health Care Education/Training Program
DX: K56.609 Unspecified intestinal obstruction, unspecified as to partial versus complete obstruction (principal); R11.2 Nausea with vomiting, unspecified; K52.9 Noninfective gastroenteritis and colitis, unspecified; K59.00 Constipation, unspecified; D64.9 Anemia, unspecified; K80.20 Calculus of gallbladder without cholecystitis without obstruction; N20.0 Calculus of kidney; K21.9 Gastro-esophageal reflux disease without esophagitis; K44.9 Diaphragmatic hernia without obstruction or gangrene; Z98.84 Bariatric surgery status
CPT/HCPCS: 36415; 74177; 80048; 80053; 82607; 82728; 82746; 83540; 83550; 83605; 83690; 83735; 84443; 85025; 96372; 96374; 96375; 99285; C9113; J1644; J1885; J2270; J2405; J2550; J7030; Q9967

== ENCOUNTER → 2023-12-23 08:41 | Outpatient (BNVA) | payer MEDICARE, OTHER, SELFPAY | PROVIDERS: PCP Family Medicine; Visit Provider Specialist | DX: M75.102 Unspecified rotator cuff tear or rupture of left shoulder, not specified as traumatic; M12.812 Other specific arthropathies, not elsewhere classified, left shoulder | CPT/HCPCS: 20610; J1100; J2795; J3301 ==

== ENCOUNTER → 2024-01-05 11:08 | Outpatient (BNVA) | payer MEDICARE, OTHER, SELFPAY | PROVIDERS: PCP Family Medicine; Visit Provider Specialist | DX: M75.102 Unspecified rotator cuff tear or rupture of left shoulder, not specified as traumatic (principal); M19.011 Primary osteoarthritis, right shoulder; M19.012 Primary osteoarthritis, left shoulder | CPT/HCPCS: 73030; 99213 ==

== ENCOUNTER → 2024-03-17 08:19 | Outpatient (BNVA) | payer MEDICARE, OTHER, SELFPAY | PROVIDERS: PCP Family Medicine; Visit Provider Specialist | DX: M75.102 Unspecified rotator cuff tear or rupture of left shoulder, not specified as traumatic; M19.011 Primary osteoarthritis, right shoulder; M19.012 Primary osteoarthritis, left shoulder; Z71.89 Other specified counseling | CPT/HCPCS: 20610; J1100; J2795; J3301 ==

== ENCOUNTER → 2024-07-04 08:26 | Outpatient (BNVA) | payer MEDICARE, OTHER, SELFPAY | PROVIDERS: PCP Family Medicine; Visit Provider Specialist | DX: R29.90 Unspecified symptoms and signs involving the nervous system (principal); G43.019 Migraine without aura, intractable, without status migrainosus | CPT/HCPCS: 99212; 99213 ==

== ENCOUNTER → 2024-08-11 08:21 | Outpatient (BNVA) | payer MEDICARE, OTHER, SELFPAY | PROVIDERS: PCP Family Medicine; Visit Provider Specialist | DX: M75.102 Unspecified rotator cuff tear or rupture of left shoulder, not specified as traumatic (principal); M19.012 Primary osteoarthritis, left shoulder; Z71.89 Other specified counseling | CPT/HCPCS: 20610; J1100; J2795; J3301 ==

== ENCOUNTER 2024-08-22 07:32 | Outpatient (RCR) | payer MEDICARE, OTHER, SELFPAY | END 2024-09-21 23:59 | disposition home or self-care (01) | LOC: SPT 07:32 | DX: R42 Dizziness and giddiness (principal) | CPT/HCPCS: 95992; 97161 ==

== ENCOUNTER → 2024-12-22 10:09 | Outpatient (BNVA) | payer MEDICARE, OTHER, SELFPAY | PROVIDERS: Visit Provider Specialist | DX: M75.102 Unspecified rotator cuff tear or rupture of left shoulder, not specified as traumatic (principal); M12.812 Other specific arthropathies, not elsewhere classified, left shoulder; Z71.89 Other specified counseling | CPT/HCPCS: 20610; J1100; J2795; J3301 ==

== ENCOUNTER 2025-01-31 12:06 | Emergency (ER) | payer MEDICARE, OTHER, SELFPAY ==
--- NOTE | 2025-01-31 12:12 | XR_ITS ---
WS: [id number] Left hand, 3 views, 01/31/2025 Clinical Data: injury Comparison: None. Findings: No fractures or dislocations are seen. There is soft tissue injury of the distal phalanx of the thumb. There is a small foreign body in the radial aspect of the distal phalanx of the third finger. The joint spaces are normal XR/XR hand LT min 3V* [id number] Impression: 1. Soft tissue injury to the distal phalanx of left thumb. 2. Negative for fracture or dislocation.
[2025-01-31 12:52] VITALS: BP 152/81; PULSE 69; RESP 16; TEMP 36.8; O2SAT 96
[2025-01-31 13:41] VITALS: BP 123/57; PULSE 69; O2SAT 98
--- NOTE | 2025-01-31 13:43 | W.ED.WOUNDLC ---
HPI - Wound/Laceration General: Chief Complaint: Wound/Laceration Stated Complaint: lt thumb inj Time Seen by Provider: 01/31/25 12:40 Source: patient Mode of arrival: ambulatory Limitations: no limitations History of Present Illness: Patient is a 74-year-old male who presents the emergency department due to laceration of the left thumb. He cut it by accident using a skill saw, was actively bleeding on arrival but with direct pressure in the waiting room, at time of examination there is no active bleeding. No contamination or foreign body. Tetanus not up-to-date. Mild pain noted at this time, still has movement of the thumb with no distal neurovascular symptoms. Vitals within normal limits. He is not on a blood thinner. Onset (ago): minute(s) Extremity Location: Left: hand (Thumb) Place: home Patient tetanus UTD: No Context: accidental Associated symptoms: Denies chills, fever(s), nausea or vomiting Related Data Home Medications ?Medication ?Instructions ?Recorded ?Confirmed ascorbic acid (vitamin C) 500 mg 500 mg PO BID 12/22/21 01/31/25 tablet (Vitamin C) buspirone 10 mg tablet 10 mg PO BID 12/22/21 01/31/25 calcium 600 mg (as 1 tab PO DAILY 12/22/21 01/31/25 carbonate)-vitamin D3 5 mcg (200 unit) tablet cholecalciferol (vitamin D3) 50 50 mcg PO DAILY 12/22/21 01/31/25 mcg (2,000 unit) capsule (Vitamin D3) cyanocobalamin (vitamin B-12) 500 500 mcg PO DAILY 12/22/21 01/31/25 mcg tablet (Vitamin B-12) diphenhydramine HCl 25 mg tablet 50 mg PO QAM PRN Allergy Symptoms 12/22/21 01/31/25 (Benadryl Allergy) ferrous sulfate 325 mg (65 mg 325 mg PO DAILY 12/22/21 01/31/25 iron) tablet (iron) hydrocodone 5 mg-acetaminophen 325 1 tab PO QID PRN Pain 12/22/21 01/31/25 mg tablet multivitamin 1 tab PO DAILY 12/22/21 01/31/25 paroxetine HCl 40 mg tablet 40 mg PO DAILY 12/22/21 01/31/25 trazodone 50 mg tablet 50 mg PO BEDTIME 12/22/21 01/31/25 atorvastatin 20 mg tablet 20 mg PO BEDTIME 10/16/23 01/31/25 meclizine 12.5 mg tablet 1.25 mg PO TID PRN Dizziness 12/22/24 01/31/25 albuterol sulfate 90 mcg/actuation 2 puff inhalation Q4H PRN 01/31/25 01/31/25 aerosol inhaler Shortness Of Breath oxybutynin chloride 15 mg 15 mg PO DAILY 01/31/25 01/31/25 tablet,extended release 24 hr Previous Rx's ?Medication ?Instructions ?Recorded aspirin 81 mg tablet,delayed 81 mg PO DAILY #30 tabs 12/22/21 release amitriptyline 25 mg tablet 25 mg PO BEDTIME #90 tabs 07/04/24 cephalexin 500 mg capsule 500 mg PO BID 7 days #14 caps 01/31/25 Allergies Allergy/AdvReac Type Severity Reaction Status Date / Time Penicillins Allergy ALGY-Anaphy Verified 01/31/25 12:57 laxis Review of Systems General: Reports: 10 or more systems reviewed and unremarkable except in HPI and below Const: Denies: fever(s) or chills Card: Denies: chest pain Resp: Denies: dyspnea GI: Denies: abdominal pain, nausea, vomiting or diarrhea Musc: Denies: extremity pain or joint pain Skin/Breast: Reports: skin pain, skin tenderness and new lesions (Laceration to left thumb); Denies: rash Neuro: Denies: headache(s) PFS ED PFSH: Medical History Temporal arteritis Hx of cataract Transient global amnesia No significant past medical history Surgical History S/P surgery on nasal septum History of biopsy of temporal artery bilateral done 05/04/22-Dr. Garza Hx of tonsillectomy Hx of hernia repair 3 total History of knee replacement procedure of left knee History of knee replacement procedure of right knee Hx of colonoscopy 10 plus years ago Hx of gastric bypass No significant past surgical history Social History Smoking and tobacco/nicotine status: former use of tobacco/nicotine Alcohol intake: unknown Physical Exam Const: COMMON NORMALS: no acute distress, average body habitus, patient oriented x3, no limitations, healthy appearing, alert and well nourished HENMT: COMMON NORMALS: normocephalic and atraumatic HEAD & SCALP: normocephalic and atraumatic Neck/C-Spine: COMMON NORMALS: full ROM, no lymphadenopathy, supple and no meningeal signs Resp: COMMON NORMALS: normal respiratory effort, No use of accessory muscles and clear to auscultation bilaterally AUSCULTATION: clear to auscultation bilaterally Cardio: COMMON NORMALS: regular rate and regular rhythm RATE: regular rate RHYTHM: regular rhythm Extremity: COMMON NORMALS: full ROM and capillary refill normal Neuro: COMMON NORMALS: patient oriented x3 SENSORIUM/ORIENTATION: Yes alert MENINGEAL SIGNS: Yes no meningeal signs Skin: COMMON NORMALS: turgor normal NARRATIVE SKIN EXAM: 2.5 cm laceration to finger pad of left thumb with no active bleeding. Well-approximated. No foreign body or contamination. Does not involve the deep structures. GENERAL SKIN EXAM: turgor normal Procedures Laceration Laceration 1: Site: hand Side (If applicable): left (Thumb) Size (cm): 2.5 Description: linear and clean Depth: simple, single layer Pre-repair: wound explored, irrigated extensively and deep structures intact Skin layer closed with: nylon Size (cm): 4-0 Number of sutures: 8 Technique: simple, interrupted Nerve Block Nerve Block 1: Local Anesthetic: lidocaine 2% Amount of anesthesia used (mL): 7 Side: left Nerve Blocks: digital Procedure Successful: Yes Patient Tolerated Procedure: well Complications: none Course Vital Signs: Vital signs: Vital Signs Temperature 98.2 F 01/31/25 12:52 Pulse Rate 67 01/31/25 14:01 Respiratory Rate 16 01/31/25 12:52 Blood Pressure 123/57 01/31/25 13:41 Pulse Oximetry 96 01/31/25 14:01 Oxygen Delivery Me thod Room Air 01/31/25 14:01 MDM - Wound/Laceration Medical Decision Making This patient presented for laceration repair after injury with skill saw. Tetanus was not up-to-date, this was administered here in the ED. No active bleeding on arrival, laceration involved the superficial layers and was repaired, see the procedure note. Procedure tolerated well he will be started on prophylactic antibiotics and have the sutures removed in 5 to 7 days with primary care. Discussed proper wound care and return precautions, verbalized understanding. The x-ray did not show any underlying fracture or dislocation. Lab Data Radiology Impressions Hand X-Ray 01/31/25 12:12 Impression: 1. Soft tissue injury to the distal phalanx of left thumb. 2. Negative for fracture or dislocation. All radiology interpretation(s) finalized by discharge Discharge Plan Discharge Patient Disposition: Home Clinical Impression: Laceration of left thumb Qualifiers: Encounter type: initial encounter Damage to nail status: without damage Foreign body presence: without foreign body Qualified Code(s): S61.012A - Laceration without foreign body of left thumb without damage to nail, initial encounter Condition: Stable Prescriptions: New cephalexin 500 mg capsule 500 mg PO BID 7 Days Qty: 14 0RF No Action amitriptyline 25 mg tablet 25 mg PO BEDTIME Qty: 90 3RF meclizine 12.5 mg tablet 1.25 mg PO TID PRN (Reason: Dizziness) multivitamin Tablet 1 tab PO DAILY trazodone 50 mg tablet 50 mg PO BEDTIME hydrocodone-acetaminophen 5-325 mg tablet 1 tab PO QID PRN (Reason: Pain) calcium carbonate-vitamin D3 600 mg(1,500mg) -200 unit Tablet 1 tab PO DAILY cyanocobalamin (vitamin B-12) [Vitamin B-12] 500 mcg Tablet 500 mcg PO DAILY ascorbic acid (vitamin C) [Vitamin C] 500 mg Tablet 500 mg PO BID ferrous sulfate [iron] 325 mg (65 mg iron) Tablet 325 mg PO DAILY buspirone 10 mg tablet 10 mg PO BID diphenhydramine HCl [Benadryl Allergy] 25 mg Tablet 50 mg PO QAM PRN (Reason: Allergy Symptoms) paroxetine HCl 40 mg tablet 40 mg PO DAILY cholecalciferol (vitamin D3) [Vitamin D3] 50 mcg (2,000 unit) Capsule 50 mcg PO DAILY aspirin 81 mg tablet,delayed release (DR/EC) 81 mg PO DAILY Qty: 30 0RF atorvastatin 20 mg tablet 20 mg PO BEDTIME albuterol sulfate 90 mcg/actuation HFA aerosol inhaler 2 puff INHALATION Q4H PRN (Reason: Shortness Of Breath) oxybutynin chloride 15 mg tablet extended release 24hr 15 mg PO DAILY Discharge Orders: Discharge ED (Routine); Ordered 01/31/25 Ordered By: Giovani Canales Referrals: Christie Almaraz, [employer] [Primary Care Provider] - Patient Instructions: Finger Laceration (ED) Activity Restrictions/Additional Instructions: Sutures out in 5 to 7 days. Do not soak the thumb in water. Take the antibiotics as prescribed. Monitor for any excess bleeding, discharge, significant swelling, or other signs of infection and return to the ED as we discussed. Follow-up with primary care. Please see the attached patient instructions for further education. Print Language: Kiswahili Coding Level of Care Code ED Supervisor Refining for Igor Palma
[2025-01-31] MEDS: tetanus-dipt-pertussis 0.5 mL SDV IM (13:56)
[2025-01-31] MEDS: lidocaine 2% INJ 20 mL INJECTION (13:59)
[2025-01-31 14:01] VITALS: PULSE 67; O2SAT 96
[2025-01-31 14:39] VITALS: BP 120/67; PULSE 63; O2SAT 97
== END 2025-01-31 14:40 | disposition home or self-care (01) ==
PROVIDERS: Emergency Provider Physician Assistant
DX: S61.012A Laceration without foreign body of left thumb without damage to nail, initial encounter (principal); Z79.82 Long term (current) use of aspirin; Z87.891 Personal history of nicotine dependence; W27.0XXA Contact with workbench tool, initial encounter
CPT/HCPCS: 12001; 73130; 90471; 90715; 99283